=== PATIENT | female | born 1960 | race African-American/Black ===

== ENCOUNTER 2017-11-30 11:47 | Emergency (ER) | payer OTHER ==
[2017-11-30 11:56] VITALS: TEMP 98.2
[2017-11-30] MEDS ORDERED: IPRATROPIUM-ALBUTEROL 3 ML NEB INHALATION STA (12:03)
--- NOTE | 2017-11-30 12:06 | ED ---
General Adult HPI - General Chief complaint: Shortness of Breath Stated complaint: COUGH Time Seen by Provider: 11/30/17 12:00 Source: patient, RN notes reviewed Mode of arrival: ambulatory Limitations: no limitations - History of Present Illness Initial comments: Patient is a pleasant 57-year-old female presenting to the emergency Department with complaints of cough and difficulty breathing. Onset of symptoms was around 9 days ago. Patient does have productive cough however states it is difficult to get phlegm up. Patient states there is some yellow tinged phlegm. No fevers. Patient does have some discomfort with cough only left lateral ribs. No leg pain or leg swelling. No fevers. No history of previous lung disease. Patient is a daily smoker. - Related Data Home Medications Medication Instructions Recorded Confirmed D-Methorphan/PE/Acetaminophen 2 tab PO Q4H PRN 11/30/17 11/30/17 [Tylenol Cold Multi-Symp Caplet] Previous Rx's Medication Instructions Recorded Albuterol Inhaler [Ventolin Hfa 2 puff INHALATION Q4HR PRN #1 11/30/17 Inhaler] inhaler Azithromycin [Zithromax Z-pack] 250 mg PO DIRECTED #6 tab 11/30/17 predniSONE 20 mg PO BID #8 tab 11/30/17 Allergies Allergy/AdvReac Type Severity Reaction Status Date / Time No Known Allergies Allergy Verified 11/30/17 12:23 Review of Systems ROS Statement: Those systems with pertinent positive or pertinent negative responses have been documented in the HPI. ROS Other: All systems not noted in ROS Statement are negative. Constitutional: Denies: fever Eyes: Denies: eye pain ENT: Denies: ear pain Respiratory: Reports: cough, dyspnea Cardiovascular: Denies: chest pain, palpitations, edema Endocrine: Denies: fatigue Gastrointestinal: Denies: abdominal pain Genitourinary: Denies: dysuria Musculoskeletal: Denies: back pain Skin: Denies: rash Neurological: Denies: weakness Past Medical History Past Medical History: No Reported History History of Any Multi-Drug Resistant Organisms: None Reported Past Surgical History: Tubal Ligation Past Psychological History: No Psychological Hx Reported Smoking Status: Current every day smoker Past Alcohol Use History: Occasional Past Drug Use History: Marijuana General Exam Limitations: no limitations General appearance: alert, in no apparent distress Head exam: Present: atraumatic Eye exam: Present: normal appearance ENT exam: Present: normal oropharynx Neck exam: Present: normal inspection Respiratory exam: Present: normal lung sounds bilaterally. Absent: chest wall tenderness Cardiovascular Exam: Present: regular rate, normal rhythm GI/Abdominal exam: Present: soft. Absent: tenderness Extremities exam: Present: normal inspection. Absent: pedal edema, calf tenderness Neurological exam: Present: alert Psychiatric exam: Present: normal affect, normal mood Skin exam: Present: normal color Course Vital Signs 11/30/17 11/30/17 11/30/17 11:53 12:20 12:29 Temperature 98.2 F Pulse Rate 106 H 87 81 Respiratory 20 Rate Blood Pressure 135/83 O2 Sat by Pulse 97 Oximetry 11/30/17 12:50 Temperature Pulse Rate 77 Respiratory 18 Rate Blood Pressure 122/74 O2 Sat by Pulse Oximetry EKG Findings - EKG Comments: EKG Findings:: Normal sinus rhythm 98. IL 150. QRS 78. QT 378. QTC 42. Normal axis. Septal Q waves. No acute ST change. Biatrial enlargement. Medical Decision Making - Medical Decision Making Patient reevaluated and resting comfortably in bed. Patient feels much better and requests discharge. Lungs are clear to auscultation. Patient updated on results and need for follow-up. Patient also advised to discontinue smoking. - Lab Data Result diagrams: 11/30/17 12:16 11/30/17 12:16 Lab Results 11/30/17 11/30/17 11/30/17 Range/Units 12:16 12:16 12:16 WBC 6.5 (3.8-10.6) k/uL RBC 4.58 (3.80-5.40) m/uL Hgb 14.0 (11.4-16.0) gm/dL Hct 44.8 (34.0-46.0) % MCV 97.9 (80.0-100.0) fL MCH 30.7 (25.0-35.0) pg MCHC 31.3 (31.0-37.0) g/dL RDW 14.4 (11.5-15.5) % Plt Count 300 (150-450) k/uL Neutrophils % 40 % Lymphocytes % 49 % Monocytes % 6 % Eosinophils % 2 % Basophils % 1 % Neutrophils # 2.6 (1.3-7.7) k/uL Lymphocytes # 3.1 (1.0-4.8) k/uL Monocytes # 0.4 (0-1.0) k/uL Eosinophils # 0.1 (0-0.7) k/uL Basophils # 0.1 (0-0.2) k/uL PT (9.0-12.0) sec INR (<1.2) APTT (22.0-30.0) sec D-Dimer (<0.60) mg/L FEU Sodium 140 (137-145) mmol/L Potassium 4.2 (3.5-5.1) mmol/L Chloride 106 (98-107) mmol/L Carbon Dioxide 26 (22-30) mmol/L Anion Gap 8 mmol/L BUN 16 (7-17) mg/dL Creatinine 0.82 (0.52-1.04) mg/dL Est GFR (CKD-EPI)AfAm >90 (>60 ml/min/1.73 sqM) Est GFR (CKD-EPI)NonAf 81 (>60 ml/min/1.73 sqM) Glucose 105 H (74-99) mg/dL Calcium 9.9 (8.4-10.2) mg/dL Total Bilirubin 0.6 (0.2-1.3) mg/dL AST 25 (14-36) U/L ALT 17 (9-52) U/L Alkaline Phosphatase 78 (38-126) U/L Total Creatine Kinase 116 (30-135) U/L CK-MB (CK-2) 0.9 (0.0-2.4) ng/mL CK-MB (CK-2) Rel Index 0.8 Troponin I <0.012 (0.000-0.034) ng/mL NT-Pro-B Natriuret Pep pg/mL Total Protein 7.7 (6.3-8.2) g/dL Albumin 4.3 (3.5-5.0) g/dL 11/30/17 11/30/17 Range/Units 12:16 12:16 WBC (3.8-10.6) k/uL RBC (3.80-5.40) m/uL Hgb (11.4-16.0) gm/dL Hct (34.0-46.0) % MCV (80.0-100.0) fL MCH (25.0-35.0) pg MCHC (31.0-37.0) g/dL RDW (11.5-15.5) % Plt Count (150-450) k/uL Neutrophils % % Lymphocytes % % Monocytes % % Eosinophils % % Basophils % % Neutrophils # (1.3-7.7) k/uL Lymphocytes # (1.0-4.8) k/uL Monocytes # (0-1.0) k/uL Eosinophils # (0-0.7) k/uL Basophils # (0-0.2) k/uL PT 9.9 (9.0-12.0) sec INR 1.0 (<1.2) APTT 22.8 (22.0-30.0) sec D-Dimer 0.35 (<0.60) mg/L FEU Sodium (137-145) mmol/L Potassium (3.5-5.1) mmol/L Chloride (98-107) mmol/L Carbon Dioxide (22-30) mmol/L Anion Gap mmol/L BUN (7-17) mg/dL Creatinine (0.52-1.04) mg/dL Est GFR (CKD-EPI)AfAm (>60 ml/min/1.73 sqM) Est GFR (CKD-EPI)NonAf (>60 ml/min/1.73 sqM) Glucose (74-99) mg/dL Calcium (8.4-10.2) mg/dL Total Bilirubin (0.2-1.3) mg/dL AST (14-36) U/L ALT (9-52) U/L Alkaline Phosphatase (38-126) U/L Total Creatine Kinase (30-135) U/L CK-MB (CK-2) (0.0-2.4) ng/mL CK-MB (CK-2) Rel Index Troponin I (0.000-0.034) ng/mL NT-Pro-B Natriuret Pep 45 pg/mL Total Protein (6.3-8.2) g/dL Albumin (3.5-5.0) g/dL - Radiology Data Radiology results: image reviewed (Chest x-ray shows no acute process) Disposition Clinical Impression: Acute bronchitis Disposition: HOME SELF-CARE Condition: Stable Instructions: Acute Bronchitis (ED) Additional Instructions: Discontinue smoking. These follow-up with primary care physician in the next couple days for recheck. Return for difficulty breathing, fevers, chest pain, worsening or changing symptoms or other concerns. Prescriptions: Albuterol Inhaler [Ventolin Hfa Inhaler] 2 puff INHALATION Q4HR PRN #1 inhaler PRN Reason: Dyspnea Azithromycin [Zithromax Z-pack] 250 mg PO DIRECTED #6 tab predniSONE 20 mg PO BID #8 tab Is patient prescribed a controlled substance at d/c from ED?: No Referrals: Filemon Wu MD [Primary Care Provider] - 1-2 days Time of Disposition: 13:35
[2017-11-30 12:35] LABS: Basophils # (A) 0.1 k/uL (0-0.2); Basophils % (A) 1 %; Eosinophils # (A) 0.1 k/uL (0-0.7); Eosinophils % (A) 2 %; HCT 44.8 % (34.0-46.0); Lymphocytes # (A) 3.1 k/uL (1.0-4.8); Lymphocytes % (A) 49 %; MCH 30.7 pg (25.0-35.0); MCHC 31.3 g/dL (31.0-37.0); MCV 97.9 fL (80.0-100.0); Mean Platelet Volume 6.4; Monocytes # (A) 0.4 k/uL (0-1.0); Monocytes % (A) 6 %; Neutrophils # (A) 2.6 k/uL (1.3-7.7); Neutrophils % (A) 40 %; Platelet Count 300 k/uL (150-450); RBC 4.58 m/uL (3.80-5.40); RDW 14.4 % (11.5-15.5); WBC 6.5 k/uL (3.8-10.6)
[2017-11-30 12:49] LABS: ALT 17 U/L (9-52); AST 25 U/L (14-36); Albumin 4.3 g/dL (3.5-5.0); Alkaline Phosphatase 78 U/L (38-126); Anion Gap 8 mmol/L; Blood Urea Nitrogen 16 mg/dL (7-17); Calcium 9.9 mg/dL (8.4-10.2); Carbon Dioxide 26 mmol/L (22-30); Chloride 106 mmol/L (98-107); Glucose 105 mg/dL (74-99); Potassium 4.2 mmol/L (3.5-5.1); Sodium 140 mmol/L (137-145); Total Bilirubin 0.6 mg/dL (0.2-1.3); Total Protein 7.7 g/dL (6.3-8.2)
--- NOTE | 2017-11-30 12:49 | XR ---
EXAMINATION TYPE: XR chest 2V DATE OF EXAM: 11/30/2017 COMPARISON: NONE HISTORY: Shortness of breath TECHNIQUE: Frontal and lateral views of the chest are obtained. FINDINGS: Scattered senescent parenchymal changes noted. Hyperinflation compatible with COPD. No evidence for infiltrate. No evidence for atelectasis. Heart size is stable. Mediastinal structures are stable and grossly unremarkable. No evidence for hilar prominence. Degenerative changes dorsal spine. IMPRESSION: 1. No evidence for acute pulmonary disease.
[2017-11-30 12:52] LABS: D-Dimer 0.35 mg/L FEU (<0.60); Partial Thromboplastin Time 22.8 sec (22.0-30.0); Prothrombin Time 9.9 sec (9.0-12.0)
[2017-11-30 12:53] VITALS: RESP 18
[2017-11-30 13:01] LABS: Creatine Kinase 116 U/L (30-135)
[2017-11-30 13:14] LABS: Creatine Kinase MB 0.9 ng/mL (0.0-2.4); Troponin I <0.012 ng/mL (0.000-0.034)
[2017-11-30 14:06] VITALS: BP 99/64; PULSE 80
== END 2017-11-30 14:04 | disposition home or self-care (01) ==
LOC: EC 11:47
DX: J20.9 Acute bronchitis, unspecified (principal); F17.200 Nicotine dependence, unspecified, uncomplicated
CPT/HCPCS: 36415; 71046; 80053; 82550; 82553; 83880; 84484; 85025; 85379; 85610; 85730; 93005; 94640; 99285

== ENCOUNTER 2020-12-26 04:10 | Inpatient (IN) | payer OTHER ==
[2020-12-26] MEDS ORDERED: AZITHROMYCIN 500 MG in SODIUM CHLORIDE 0.9% 250 ML IVPB STA (04:30)
[2020-12-26] MEDS ORDERED: DEXAMETHASONE SOD PHOSPHATE 10 MG/ML 1 ML VIAL IVP STA (04:30)
[2020-12-26] MEDS ORDERED: SODIUM CHLORIDE 0.9% 1,000 ML IV STA (04:30)
[2020-12-26] MEDS ORDERED: ALBUTEROL HFA INHALER INHALATION STA (04:30)
[2020-12-26] MEDS ORDERED: KETOROLAC 15 MG/ML 1 ML VIAL IVP STA (04:30)
[2020-12-26] MEDS ORDERED: ACETAMINOPHEN TAB 500 MG TAB PO STA (04:30)
--- NOTE | 2020-12-26 04:32 | ED ---
SOB HPI - General Chief Complaint: Upper Respiratory Infection Stated Complaint: Pneumonia Time Seen by Provider: 12/26/20 04:14 Source: patient, RN notes reviewed, old records reviewed Mode of arrival: wheelchair Limitations: no limitations - History of Present Illness Initial Comments: This is a 52-year-old female to the emergency. Patient was [facility] diagnosed with pneumonia. Patient states she was diagnosed at [facility] states her symptoms have been getting progressively worse. Persistent fever persistent shortness of breath increased cough and congestion. Patient is apparent history of legionnaire's disease but otherwise clean medical history and no other complaints. Sick contacts include that hospitalization MD Complaint: shortness of breath, cough -: days(s) Severity: moderate Severity scale (1-10): 7 Quality: aching Consistency: constant Improves With: nothing Worsens With: nothing Known History Of: COPD, asthma Context: recent URI, recent illness Associated Symptoms: cough, sputum production Treatments Prior to Arrival: none - Related Data Home Medications Medication Instructions Recorded Confirmed D-Methorphan/PE/Acetaminophen 2 tab PO Q4H PRN 11/30/17 11/30/17 [Tylenol Cold Multi-Symp Caplet] Previous Rx's Medication Instructions Recorded Albuterol Inhaler (Mhu) [Ventolin 2 puff INHALATION Q4HR PRN #1 11/30/17 Hfa Inhaler (Mhu)] inhaler Azithromycin [Zithromax Z-pack (6 250 mg PO DIRECTED #6 tab 11/30/17 tabs)] predniSONE [Deltasone] 20 mg PO BID #8 tab 11/30/17 Allergies Allergy/AdvReac Type Severity Reaction Status Date / Time No Known Allergies Allergy Verified 12/26/20 04:21 Review of Systems ROS Statement: Those systems with pertinent positive or pertinent negative responses have been documented in the HPI. ROS Other: All systems not noted in ROS Statement are negative. Past Medical History Past Medical History: No Reported History Additional Past Medical History / Comment(s): Legionnaires Disease History of Any Multi-Drug Resistant Organisms: None Reported Past Surgical History: Tubal Ligation Past Psychological History: No Psychological Hx Reported Smoking Status: Former smoker Past Alcohol Use History: Occasional Past Drug Use History: Marijuana General Exam Limitations: no limitations General appearance: alert, in no apparent distress, anxious Head exam: Present: atraumatic, normocephalic, normal inspection Eye exam: Present: normal appearance, PERRL, EOMI. Absent: scleral icterus, conjunctival injection, periorbital swelling ENT exam: Present: normal exam, mucous membranes moist Neck exam: Present: normal inspection. Absent: tenderness, meningismus, lymphadenopathy Respiratory exam: Present: respiratory distress, wheezes. Absent: rales, rhonchi, stridor Cardiovascular Exam: Present: normal rhythm, tachycardia, normal heart sounds. Absent: systolic murmur, diastolic murmur, rubs, gallop, clicks GI/Abdominal exam: Present: soft, normal bowel sounds. Absent: distended, tenderness, guarding, rebound, rigid Extremities exam: Present: normal inspection, full ROM, normal capillary refill. Absent: tenderness, pedal edema, joint swelling, calf tenderness Back exam: Present: normal inspection Neurological exam: Present: alert, oriented X3, CN II-XII intact Psychiatric exam: Present: normal affect, normal mood Skin exam: Present: warm, dry, intact, normal color. Absent: rash Course Vital Signs 12/26/20 04:17 Temperature 100.4 F H Pulse Rate 138 H Respiratory 20 Rate Blood Pressure 107/66 O2 Sat by Pulse 88 L Oximetry - Reevaluation(s) Reevaluation #1: 12/26/20 04:32 Medical record is reviewed Reevaluation #2: 12/26/20 05:49 She is improved with supplemental oxygen and supportive care fever control Reevaluation #3: 12/26/20 05:49 Patient is informed of results and questions are answered - Consultations Consultation #1: Spoke with sound who agrees to admit this patient Medical Decision Making - Medical Decision Making 52 female to the emergency room. Patient has persistent fever shortness of breath with right low pneumonia. We will again retest patient for coronavirus treat for pneumonia patient be admitted for supportive care and supportive O2 therapy - Lab Data Result diagrams: 12/26/20 04:35 12/26/20 04:35 Lab Results 12/26/20 12/26/20 12/26/20 Range/Units 04:35 04:35 04:35 WBC 13.2 H (3.8-10.6) k/uL RBC 4.40 (3.80-5.40) m/uL Hgb 14.6 (11.4-16.0) gm/dL Hct 42.4 (34.0-46.0) % MCV 96.3 (80.0-100.0) fL MCH 33.1 (25.0-35.0) pg MCHC 34.3 (31.0-37.0) g/dL RDW 14.4 (11.5-15.5) % Plt Count 268 (150-450) k/uL MPV 7.9 Neutrophils % 83 % Lymphocytes % 10 % Monocytes % 5 % Eosinophils % 1 % Basophils % 0 % Neutrophils # 10.9 H (1.3-7.7) k/uL Lymphocytes # 1.3 (1.0-4.8) k/uL Monocytes # 0.6 (0-1.0) k/uL Eosinophils # 0.1 (0-0.7) k/uL Basophils # 0.1 (0-0.2) k/uL PT 11.4 (9.0-12.0) sec INR 1.1 (<1.2) APTT 27.9 (22.0-30.0) sec Sodium 132 L (137-145) mmol/L Potassium 3.6 (3.5-5.1) mmol/L Chloride 99 (98-107) mmol/L Carbon Dioxide 21 L (22-30) mmol/L Anion Gap 12 mmol/L BUN 9 (7-17) mg/dL Creatinine 0.71 (0.52-1.04) mg/dL Est GFR (CKD-EPI)AfAm >90 (>60 ml/min/1.73 sqM) Est GFR (CKD-EPI)NonAf >90 (>60 ml/min/1.73 sqM) Glucose 101 H (74-99) mg/dL Plasma Lactic Acid Phillip (0.7-2.0) mmol/L Calcium 9.1 (8.4-10.2) mg/dL Magnesium 1.8 (1.6-2.3) mg/dL Total Bilirubin 1.6 H (0.2-1.3) mg/dL AST 73 H (14-36) U/L ALT 70 H (4-34) U/L Alkaline Phosphatase 205 H (38-126) U/L Lactate Dehydrogenase 617 (313-618) U/L Total Protein 7.0 (6.3-8.2) g/dL Albumin 3.8 (3.5-5.0) g/dL 12/26/20 Range/Units 04:35 WBC (3.8-10.6) k/uL RBC (3.80-5.40) m/uL Hgb (11.4-16.0) gm/dL Hct (34.0-46.0) % MCV (80.0-100.0) fL MCH (25.0-35.0) pg MCHC (31.0-37.0) g/dL RDW (11.5-15.5) % Plt Count (150-450) k/uL MPV Neutrophils % % Lymphocytes % % Monocytes % % Eosinophils % % Basophils % % Neutrophils # (1.3-7.7) k/uL Lymphocytes # (1.0-4.8) k/uL Monocytes # (0-1.0) k/uL Eosinophils # (0-0.7) k/uL Basophils # (0-0.2) k/uL PT (9.0-12.0) sec INR (<1.2) APTT (22.0-30.0) sec Sodium (137-145) mmol/L Potassium (3.5-5.1) mmol/L Chloride (98-107) mmol/L Carbon Dioxide (22-30) mmol/L Anion Gap mmol/L BUN (7-17) mg/dL Creatinine (0.52-1.04) mg/dL Est GFR (CKD-EPI)AfAm (>60 ml/min/1.73 sqM) Est GFR (CKD-EPI)NonAf (>60 ml/min/1.73 sqM) Glucose (74-99) mg/dL Plasma Lactic Acid Phillip 0.9 (0.7-2.0) mmol/L Calcium (8.4-10.2) mg/dL Magnesium (1.6-2.3) mg/dL Total Bilirubin (0.2-1.3) mg/dL AST (14-36) U/L ALT (4-34) U/L Alkaline Phosphatase (38-126) U/L Lactate Dehydrogenase (313-618) U/L Total Protein (6.3-8.2) g/dL Albumin (3.5-5.0) g/dL - EKG Data -: EKG Interpreted by Me (EKG shows sinus tachycardia 122 PA 144 QRS 80 QTc 456) - Radiology Data Radiology results: report reviewed (CTA chest does show significant right-sided pneumonia), image reviewed Critical Care Time Critical Care Time: Yes Total Critical Care Time: 31 Disposition Clinical Impression: Hypoxia, Pneumonia, Fever, Pneumonia involving right lung Disposition: ADMITTED IP TO THIS HOSP Condition: Serious Is patient prescribed a controlled substance at d/c from ED?: No Referrals: None,Stated [Primary Care Provider] - 1-2 days
[2020-12-26 05:21] LABS: Basophils # (A) 0.1 k/uL (0-0.2); Basophils % (A) 0 %; Eosinophils # (A) 0.1 k/uL (0-0.7); Eosinophils % (A) 1 %; HCT 42.4 % (34.0-46.0); HGB 14.6 gm/dL (11.4-16.0); Lymphocytes # (A) 1.3 k/uL (1.0-4.8); Lymphocytes % (A) 10 %; MCH 33.1 pg (25.0-35.0); MCHC 34.3 g/dL (31.0-37.0); MCV 96.3 fL (80.0-100.0); Mean Platelet Volume 7.9; Monocytes # (A) 0.6 k/uL (0-1.0); Monocytes % (A) 5 %; Neutrophils # (A) 10.9 k/uL (1.3-7.7); Neutrophils % (A) 83 %; Platelet Count 268 k/uL (150-450); RDW 14.4 % (11.5-15.5); WBC 13.2 k/uL (3.8-10.6)
--- NOTE | 2020-12-26 05:29 | CT ---
EXAMINATION TYPE: CT angio chest DATE OF EXAM: 12/26/2020 COMPARISON: None HISTORY: pneumonia, coughing up blood CT DLP: 213.2 mGycm Automated exposure control for dose reduction was used. CONTRAST: Performed with IV Contrast, patient injected with 60 mL of Isovue 370. There are 3-D post processed images. There is airspace consolidation in the right lower lobe and right middle lobe. Heart size is normal. There is no pericardial effusion. There is normal contrast opacification of the pulmonary arteries. There are no filling defects. There are a few bronchial lymph nodes up to 1.5 cm. There is no mediastinal adenopathy. Thoracic aorta is intact. There is no aneurysm or dissection. There is no evidence of filling defect in the pulmonary arteries. Thoracic spine is intact. There is no compression fracture. Sternum is intact. Upper abdominal soft t issues are intact. IMPRESSION: Right lower lobe and right middle lobe pneumonia. Mild right bronchial adenopathy. No evidence of pulmonary embolism.
[2020-12-26 05:31] LABS: INR 1.1 (<1.2); Partial Thromboplastin Time 27.9 sec (22.0-30.0); Prothrombin Time 11.4 sec (9.0-12.0)
[2020-12-26 05:37] LABS: ALT 70 U/L (4-34); AST 73 U/L (14-36); African American GFR (CKD) >90 (>60 ml/min/1.73 sqM); Albumin 3.8 g/dL (3.5-5.0); Alkaline Phosphatase 205 U/L (38-126); Anion Gap 12 mmol/L; Blood Urea Nitrogen 9 mg/dL (7-17); Calcium 9.1 mg/dL (8.4-10.2); Carbon Dioxide 21 mmol/L (22-30); Chloride 99 mmol/L (98-107); Glucose 101 mg/dL (74-99); LDH 617 U/L (313-618); Magnesium 1.8 mg/dL (1.6-2.3); Non-African American GFR(CKD) >90 (>60 ml/min/1.73 sqM); Potassium 3.6 mmol/L (3.5-5.1); Sodium 132 mmol/L (137-145); Total Bilirubin 1.6 mg/dL (0.2-1.3)
[2020-12-26] MEDS ORDERED: IBUPROFEN 400 MG TAB PO PRN (05:41)
[2020-12-26] MEDS ORDERED: MORPHINE SULFATE 4 MG/ML SYRINGE IV PRN (05:41)
[2020-12-26] MEDS ORDERED: ONDANSETRON 4 MG/2 ML VIAL IVP PRN (05:41)
[2020-12-26] MEDS ORDERED: NALOXONE 0.4 MG/ML 1 ML VIAL IV PRN (05:41)
[2020-12-26 06:09] LABS: C Reactive Protein 37.4 mg/dL (<1.0)
[2020-12-26] MEDS: SODIUM CHLORIDE 0.9% 1,000 ML IV SCH ×3 (06:29→23:07)
[2020-12-26] MEDS: ENOXAPARIN 40 MG/0.4 ML SYRINGE SQ SCH (07:32)
--- NOTE | 2020-12-26 08:43 | US ---
EXAMINATION TYPE: US gallbladder DATE OF EXAM: 12/26/2020 COMPARISON: NONE CLINICAL HISTORY: pain. EXAM MEASUREMENTS: Liver Length: 15.5 cm Gallbladder Wall: 0.3 cm CBD: 0.3 cm Right Kidney: 9.9 x 3.9 x 5.0 cm Pancreas: wnl Liver: wnl Gallbladder: wnl Evidence for sonographic Villalba's sign: no CBD: wnl Right Kidney: No hydronephrosis or masses seen IMPRESSION: No significant abnormality appreciated.
[2020-12-26] MEDS: ALBUTEROL HFA INHALER INHALATION SCH ×3 (09:12→19:59)
--- NOTE | 2020-12-26 09:15 | P.HPIM ---
History of Present Illness H&P Date: 12/26/20 This is a 60-year-old female with no significant past medical history that presented to the emergency room with worsening cough and hemoptysis. Patient told me that her symptoms started last week with progressive shortness of breath and cough and at that time she went to take her [facility] emergency room on 12/21 and was diagnosed with pneumonia. Patient was given a prescription for azithromycin which she took as prescribed. Patient said that her symptoms did not improve and she was having a lot of cough associated with right flank pain. This morning, she coughed up blood that she described as bright red and a small amount. She told me that the blood came up immediately with the first cough and not after prolonged coughing episode. Patient otherwise denies any fevers or chills. She was checked for COVID-19 at the outside hospital and here in our emergency room and both were negative. She also underwent a CT angiogram of the chest here in the ER that I reviewed. She'll be admitted to the hospital for further management. Patient is a former smoker and quit 2 months ago. She denies any marijuana or other substance use. Review of Systems General: The patient is awake and alert, in no distress Eye: there is normal conjunctiva bilaterally. Neck: The neck is supple, there is no JVD. Cardiovascular: Normal S1-S2, no S3-S4, no murmurs. Respiratory: Lungs clear to auscultation bilaterally Gastrointestinal: Abdomen is soft, nontender Musculoskeletal: There is no pedal edema. Neurological:. Speech is normal. Skin: Skin is warm and dry Past Medical History Past Medical History: No Reported History Additional Past Medical History / Comment(s): Legionnaires Disease History of Any Multi-Drug Resistant Organisms: None Reported Past Surgical History: Tubal Ligation Past Psychological History: No Psychological Hx Reported Smoking Status: Former smoker Past Alcohol Use History: Occasional Past Drug Use History: Marijuana Medications and Allergies Home Medications Medication Instructions Recorded Confirmed Type Pseudoephedrine HCl [Sudogest] 60 mg PO Q6H PRN 12/26/20 12/26/20 History Allergies Allergy/AdvReac Type Severity Reaction Status Date / Time No Known Allergies Allergy Verified 12/26/20 08:09 Physical Exam Vitals: Vital Signs Temp Pulse Resp BP Pulse Ox 12/26/20 07:34 98 20 92/62 97 12/26/20 06:25 110 H 18 108/76 98 12/26/20 04:17 100.4 F H 138 H 20 107/66 88 L Intake and Output 12/25/20 12/26/20 12/26/20 22:59 06:59 14:59 Other: Weight 66.678 kg General: The patient is awake and alert, in no distress Eye: there is normal conjunctiva bilaterally. Neck: The neck is supple, there is no JVD. Cardiovascular: Normal S1-S2, no S3-S4, no murmurs. Respiratory: Lungs clear to auscultation bilaterally with mild end expiratory wheezing Gastrointestinal: Abdomen is soft, nontender Musculoskeletal: There is no pedal edema. Neurological:. Speech is normal. Skin: Skin is warm and dry Results CBC & Chem 7: 12/26/20 04:35 12/26/20 04:35 Labs: Abnormal Lab Results - Last 24 Hours (Table) 12/26/20 12/26/20 Range/Units 04:35 04:35 WBC 13.2 H (3.8-10.6) k/uL Neutrophils # 10.9 H (1.3-7.7) k/uL Sodium 132 L (137-145) mmol/L Carbon Dioxide 21 L (22-30) mmol/L Glucose 101 H (74-99) mg/dL Total Bilirubin 1.6 H (0.2-1.3) mg/dL AST 73 H (14-36) U/L ALT 70 H (4-34) U/L Alkaline Phosphatase 205 H (38-126) U/L C-Reactive Protein 37.4 H (<1.0) mg/dL Assessment and Plan Assessment: This is a 60-year-old female with no significant past medical history that presented to the emergency room with worsening cough and shortness of breath. Patient will be admitted to the hospital for further management of her medical problems noted below. 1. Right lung pneumonia failed outpatient treatment 2. Sepsis without septic shock 3. Reactive airway disease with mild wheezing 4. Hemoptysis, probably secondary to above. 5. Former smoker, quit 2 months ago 6. DVT prophylaxis with subcu Lovenox Today, I reviewed her medication list and lab work results. CT angiogram of the chest showed no evidence of PE and evidence of right lower lobe and right middle lobe pneumonia. Pro-calcitonin pending. I would check for RSV and influenza. COVID-19 screen negative twice. We'll continue antibiotic with IV ceftriaxone and oral azithromycin. Sputum culture ordered. Albuterol inhaler as needed. Continue aggressive IV fluid hydration. Repeat lab work in the morning. I will consult pulmonary for further evaluation.
--- NOTE | 2020-12-26 12:13 | P.CNPUL ---
History of Present Illness Consult date: 12/26/20 Reason for consult: pneumonia History of present illness: 60-year-old female patient, -[place]namese, with a previous history of legionnaires disease that was treated at [facility], coming in today for a right lung pneumonia. The patient started having symptoms of URI and following that she started expressing pain a cluster right lateral chest area, pleuritic in nature, worse with breathing and cough and. For that reason she came in and the chest x-ray showed pneumonia and the CAT scan of the chest showed an extensive right middle lobe pneumonia and some in the right lower lobe. Based on that, the patient was started and accommodation antibiotics with Rocephin and Zithromax and she was hospitalized. COVID-19 testing is been negative. She has not taken her COVID-19 vaccination for now. She is a former smoker. She quit smoking about 2 months ago. Prior to that she used to smoke about half pack of cigarettes a day. She denies using any marijuana. No history of substance abuse, no alcoholism, no altered mentation, no hemoptysis, no history of malignancy, her vitals are all stable and the patient has no tachycardia or tachypnea. She is awake and alert and there is no altered mentation. Review of Systems Constitutional: Reports chills, Reports fatigue, Reports fever Eyes: denies as per HPI, denies blurred vision, denies bulging eye, denies decreased vision, denies diplopia, denies discharge, denies dry eye, denies irritation, denies itching, denies pain, denies photophobia, denies loss of peripheral vision, denies loss of vision, denies tunnel vision/blind spots Ears: deny: decreased hearing, ear discharge, earache, tinnitus Ears, nose, mouth and throat: Reports as per HPI Breasts: absent: as per HPI, change in shape, gynecomastia, masses, nipple discharge, pain, skin changes, swelling Cardiovascular: Reports as per HPI, Reports chest pain, Reports dyspnea on exertion Respiratory: Reports as per HPI, Reports cough, Reports dyspnea, Reports wheezing Gastrointestinal: Reports as per HPI Genitourinary: Reports as per HPI Menstruation: Reports as per HPI Musculoskeletal: Reports as per HPI Musculoskeletal: absent: ankle pain, ankle stiffness, ankle swelling, as per HPI, elbow pain, elbow stiffness, elbow swelling, foot pain, foot stiffness, foot swelling, hand pain, hand stiffness, hand swelling, hip pain, hip stiffness, hip swelling, knee pain, knee stiffness, knee swelling, shoulder pain, shoulder stiffness, shoulder swelling, wrist pain, wrist stiffness, wrist swelling Integumentary: Reports as per HPI Neurological: Reports as per HPI Psychiatric: Reports as per HPI Endocrine: Reports as per HPI Hematologic/Lymphatic: Reports as per HPI Allergic/Immunologic: Reports as per HPI Past Medical History Past Medical History: No Reported History Additional Past Medical History / Comment(s): Legionnaires Disease History of Any Multi-Drug Resistant Organisms: None Reported Past Surgical History: Tubal Ligation Past Psychological History: No Psychological Hx Reported Smoking Status: Former smoker Past Alcohol Use History: Occasional Past Drug Use History: Marijuana Medications and Allergies Home Medications Medication Instructions Recorded Confirmed Type Pseudoephedrine HCl [Sudogest] 60 mg PO Q6H PRN 12/26/20 12/26/20 History Allergies Allergy/AdvReac Type Severity Reaction Status Date / Time No Known Allergies Allergy Verified 12/26/20 08:09 Physical Exam Vitals: Vital Signs Temp Pulse Resp BP Pulse Ox 12/26/20 07:34 98 20 92/62 97 12/26/20 06:25 110 H 18 108/76 98 12/26/20 04:17 100.4 F H 138 H 20 107/66 88 L Intake and Output 12/25/20 12/26/20 12/26/20 22:59 06:59 14:59 Other: Weight 66.678 kg Gen. appearance, comfortable not in acute respiratory distress Head exam was generally normal. There was no scleral icterus or corneal arcus. Mucous membranes were moist. Neck was supple and without jugular venous distension, thyromegaly, or carotid bruits. Carotids were easily palpable bilaterally. There was no adenopathy. Lungs sounds are showing crackles along the anterior aspect of the right chest extending posteriorly to the right lower lobe. Scattered rhonchi. Scattered e xtremity wheezes. Cardiac exam revealed the PMI to be normally situated and sized. The rhythm was regular and no extrasystoles were noted during several minutes of auscultation. The first and second heart sounds were normal and physiologic splitting of the second heart sound was noted. There were no murmurs, rubs, clicks, or gallops. Abdomen abdomen Abdominal exam revealed normal bowel sounds. The abdomen was soft, non-tender, and without masses, organomegaly, or appreciable enlargement of the abdominal aorta. Examination of the extremities revealed easily palpable radial, femoral and pedal pulses. There was no cyanosis, clubbing or edema. Examination of the skin revealed no evidence of significant rashes, suspicious appearing nevi or other concerning lesions. Neurologically, the patient is awake and alert and the patient does not have any focal neurological deficit. Cranial nerves are essentially intact. Results - Laboratory Findings CBC and BMP: 12/26/20 04:35 12/26/20 04:35 PT/INR, D-dimer PT 11.4 sec (9.0-12.0) 12/26/20 04:35 INR 1.1 (<1.2) 12/26/20 04:35 Abnormal lab findings: Abnormal Labs 12/26/20 12/26/20 12/26/20 04:35 04:35 04:35 WBC 13.2 H Neutrophils # 10.9 H Sodium 132 L Carbon Dioxide 21 L Glucose 101 H Total Bilirubin 1.6 H AST 73 H ALT 70 H Alkaline Phosphatase 205 H C-Reactive Protein 37.4 H Procalcitonin 1.16 H - Diagnostic Findings Chest x-ray: image reviewed CT scan - chest: image reviewed Assessment and Plan Plan: 1 acute bilobar pneumonia. The patient has extensive consolidation of the right middle lobe and some of the right lower lobe and the patient is presenting with pleuritic right-sided chest wall pain, likely hypoxic respiratory failure and respiratory distress 2 shortness of breath secondary to above 3 acute hypoxic respiratory failure secondary to above currently on today's about 2 by nasal cannula 4 previous history of Legionella pneumonia/legionnaires disease Plan Check a Legionella urine antigen Check sputum Gram stain and culture Check blood cultures Agree on Rocephin and Zithromax Titrate FiO2 to maintain saturation above 90% IV Solu Medrol 40 mg every 8 hours We'll continue to follow
[2020-12-26] MEDS: methylPREDNISolone SOD SUCCI 40 MG/ML 1 ML VIAL IV SCH (15:12)
[2020-12-26] MEDS: ACETAMINOPHEN TAB 325 MG TAB PO PRN (20:13)
[2020-12-27] MEDS: methylPREDNISolone SOD SUCCI 40 MG/ML 1 ML VIAL IV SCH ×3 (00:33→15:45)
[2020-12-27] MEDS: ACETAMINOPHEN TAB 325 MG TAB PO PRN ×2 (02:21→12:17)
[2020-12-27] MEDS: SODIUM CHLORIDE 0.9% 1,000 ML IV SCH (05:46)
[2020-12-27] MEDS: ALBUTEROL HFA INHALER INHALATION SCH ×4 (07:47→21:13)
[2020-12-27] MEDS: ENOXAPARIN 40 MG/0.4 ML SYRINGE SQ SCH (08:37)
[2020-12-27] MEDS: AZITHROMYCIN 250 MG TAB PO SCH (09:45)
[2020-12-27] MEDS ORDERED: BENZONATATE 100 MG CAP PO PRN (10:15)
--- NOTE | 2020-12-27 10:17 | P.PN ---
Subjective Patient reports feeling about the same if not worse compared to yesterday. She is having persistent cough. She is also having symptoms of pleurisy secondary to severe cough. Objective - Vital Signs Vital signs: Vital Signs Temp 96.7 F L 12/27/20 07:27 Pulse 68 12/27/20 07:27 Resp 20 12/27/20 07:27 BP 118/74 12/27/20 07:27 Pulse Ox 97 12/27/20 07:27 Intake & Output 12/26/20 12/27/20 12/27/20 18:59 06:59 18:59 Weight 66.678 kg Other: # Voids 2 - Exam General: The patient is awake and alert, in no distress Eye: there is normal conjunctiva bilaterally. Neck: The neck is supple, there is no JVD. Cardiovascular: Normal S1-S2, no S3-S4, no murmurs. Respiratory: Lungs clear to auscultation bilaterally Gastrointestinal: Abdomen is soft, nontender Musculoskeletal: There is no pedal edema. Neurological:. Speech is normal. Skin: Skin is warm and dry - Labs CBC & Chem 7: 12/26/20 04:35 12/26/20 04:35 Labs: Abnormal Lab Results - Last 24 Hours (Table) 12/26/20 Range/Units 04:35 Procalcitonin 1.16 H (0.02-0.09) ng/mL Microbiology - Last 24 Hours (Table) 12/26/20 04:35 Blood Culture - Preliminary Blood No Growth after 24 hours Assessment and Plan Assessment: This is a 60-year-old female with no significant past medical history that presented to the emergency room with worsening cough and shortness of breath. Patient will be admitted to the hospital for further management of her medical problems noted below. 1. Right lung pneumonia failed outpatient treatment 2. Sepsis without septic shock 3. Reactive airway disease with mild wheezing with acute hypoxic respiratory failure 4. Hemoptysis, probably secondary to above. 5. Former smoker, quit 2 months ago 6. DVT prophylaxis with subcu Lovenox Today, I reviewed her medication list and lab work results. CT angiogram of the chest showed no evidence of PE and evidence of right lower lobe and right middle lobe pneumonia. Pro-calcitonin only slightly elevated. RSV and influenza negative. COVID-19 screen negative twice. We'll continue antibiotic with IV ceftriaxone and oral azithromycin. Sputum culture ordered. Albuterol inhaler as needed. Appreciate pulmonary recommendations, patient was started on IV Solu-Medrol Continue supportive care and wean off O2 as tolerated for O2 sats greater than 90%
[2020-12-27 11:46] LABS: ALT 45 U/L (8-44); AST 30 U/L (13-35); African American GFR (CKD) 116.4 (60.0-200.0); Albumin 3.1 g/dL (3.8-4.9); Albumin/Globulin Ratio 1.24 (1.60-3.17); Alkaline Phosphatase 143 U/L (41-126); BUN/Creat Ratio 16.33 Ratio (12.00-20.00); Blood Urea Nitrogen 9.8 mg/dL (9.0-27.0); Calcium 8.2 mg/dL (8.7-10.3); Carbon Dioxide 21.4 mmol/L (21.6-31.8); Chloride 109 mmol/L (96-109); Globulin 2.5 g/dL (1.6-3.3); Glucose 155 mg/dL (70-110); Non-African American GFR(CKD) 100.5 (60.0-200.0); Potassium 3.8 mmol/L (3.5-5.5); Sodium 140 mmol/L (135-145); Total Bilirubin <0.20 mg/dL (0.30-1.20); Total Protein 5.6 g/dL (6.2-8.2)
[2020-12-27 11:54] LABS: Basophils # (A) 0.02 X 10*3/uL (0.00-0.10); Basophils % (A) 0.1 %; Eosinophils # (A) 0 X 10*3/uL (0.04-0.35); Eosinophils % (A) 0 %; HCT 36.2 % (37.2-46.3); HGB 11.8 g/dL (12.0-15.0); Lymphocytes # (A) 0.97 X 10*3/uL (0.90-5.00); Lymphocytes % (A) 6.6 %; MCH 32.8 pg (27.0-32.0); MCHC 32.6 g/dL (32.0-37.0); MCV 100.6 fL (80.0-97.0); Mean Platelet Volume 10.1 fL (9.5-12.2); Monocytes # (A) 0.52 X 10*3/uL (0.20-1.00); Monocytes % (A) 3.5 %; Neutrophils # (A) 13.08 X 10*3/uL (1.80-7.70); Neutrophils % (A) 89.4 %; Platelet Count 244 X 10*3/uL (140-440); WBC 14.65 X 10*3/uL (4.50-10.00)
[2020-12-27 14:13] VITALS: BMI 25.2
--- NOTE | 2020-12-27 15:23 | P.PN ---
Subjective Progress Note Date: 12/27/20 Principal diagnosis: Acute community acquired pneumonia 60-year-old female patient, -[place], with a previous history of legionnaires disease that was treated at [facility], coming in today for a right lung pneumonia. The patient started having symptoms of URI and following that she started expressing pain a cluster right lateral chest area, pleuritic in nature, worse with breathing and cough and. For that reason she came in and the chest x-ray showed pneumonia and the CAT scan of the chest showed an extensive right middle lobe pneumonia and some in the right lower lobe. Based on that, the patient was started and accommodation antibiotics with Rocephin and Zithromax and she was hospitalized. COVID-19 testing is been negative. She has not taken her COVID-19 vaccination for now. She is a former smoker. She quit smoking about 2 months ago. Prior to that she used to smoke about half pack of cigarettes a day. She denies using any marijuana. No history of substance abuse, no alcoholism, no altered mentation, no hemoptysis, no history of malignancy, her vitals are all stable and the patient has no tachycardia or tachypnea. She is awake and alert and there is no altered mentation. On 12/27/2020 patient seen in follow-up on medical surgical floor, she is resting comfortably in bed, she is awake and alert, appears to be in no acute distress, no complaints of chest discomfort, no hemoptysis, she is currently on 2 L of oxygen and the pulse ox of 97%, remains on antibiotics with azithromycin and Rocephin, and Solu-Medrol 40 mg every 8 hours. Her CTA chest showed airspace consolidation in the right lower lobe and right middle lobe, no e vidence of pulmonary embolism. Legionella urine antigen was negative, patient also tested negative for COVID-19, influenza A and B and RSV. Her pro- calcitonin level at admission was elevated at 1.16. White blood cell count on today's labs is relatively stable at 14.6, hemoglobin is 11.8, sodium is 140, potassium is 3.8, chloride is 109, CO2 is 21, BUN is 9, creatinine 0.6. Blood culture has shown no growth. No fever or chills overnight. Vital signs have been stable. Objective - Vital Signs Vital signs: Vital Signs Temp 97.7 F 12/27/20 13:55 Pulse 86 12/27/20 13:55 Resp 18 12/27/20 14:13 BP 135/75 12/27/20 13:55 Pulse Ox 97 12/27/20 13:55 Intake & Output 12/26/20 12/27/20 12/27/20 18:59 06:59 18:59 Weight 66.678 kg 66.678 kg Other: # Voids 2 - Exam GENERAL EXAM: Alert, very pleasant, 60-year-old -[place] female, thin built, reading currently, on 2 L of oxygen and pulse ox of 97% comfortable in no apparent distress. HEAD: Normocephalic/atraumatic. EYES: Normal reaction of pupils, equal size. Conjunctiva pink, sclera white. NOSE: Clear with pink turbinates. THROAT: No erythema or exudates. NECK: No masses, no JVD, no thyroid enlargement, no adenopathy. CHEST: No chest wall deformity. Symmetrical expansion. LUNGS: Equal air entry with crackles, inspiratory over right lower lobe CVS: Regular rate and rhythm, normal S1 and S2, no gallops, no murmurs, no rubs ABDOMEN: Soft, nontender. No hepatosplenomegaly, normal bowel sounds, no guarding or rigidity. EXTREMITIES: No clubbing, no edema, no cyanosis, 2+ pulses and upper and lower extremities. MUSCULOSKELETAL: Muscle strength and tone normal. SPINE: No scoliosis or deformity SKIN: No rashes CENTRAL NERVOUS SYSTEM: Alert and oriented -3. No focal deficits, tone is normal in all 4 extremities. PSYCHIATRIC: Alert and oriented -3. Appropriate affect. Intact judgment and insight. - Labs CBC & Chem 7: 12/27/20 06:28 12/27/20 06:28 Labs: Abnormal Lab Results - Last 24 Hours (Table) 12/27/20 12/27/20 Range/Units 06:28 06:28 WBC 14.65 H (4.50-10.00) X 10*3/uL RBC 3.60 L (4.10-5.20) X 10*6/uL Hgb 11.8 L (12.0-15.0) g/dL Hct 36.2 L (37.2-46.3) % MCV 100.6 H (80.0-97.0) fL MCH 32.8 H (27.0-32.0) pg RDW 15.0 H (11.5-14.5) % Immature Gran # 0.06 H (0.00-0.04) X 10*3/uL Neutrophils # 13.08 H (1.80-7.70) X 10*3/uL Eosinophils # 0 L (0.04-0.35) X 10*3/uL Carbon Dioxide 21.4 L (21.6-31.8) mmol/L Glucose 155 H (70-110) mg/dL Calcium 8.2 L (8.7-10.3) mg/dL Total Bilirubin <0.20 L (0.30-1.20) mg/dL ALT 45 H (8-44) U/L Alkaline Phosphatase 143 H (41-126) U/L Total Protein 5.6 L (6.2-8.2) g/dL Albumin 3.1 L (3.8-4.9) g/dL Albumin/Globulin Ratio 1.24 L (1.60-3.17) g/dL Microbiology - Last 24 Hours (Table) 12/26/20 04:35 Blood Culture - Preliminary Blood No Growth after 24 hours Assessment and Plan Plan: Assessment: #1. Acute bilobar pneumonia in the right middle lobe and right lower lobe. CTA chest showed extensive consolidation in the right middle lobe and some of the right lower lobe. Patient presented with pleuritic right-sided chest wall pain. COVID-19 PCR was negative, Legionella urine antigen was negative, RSV, and influenza and B were negative. Consider possibility of bronchoalveolar cell carcinoma if it fails to respond to antibiotics and patient will need biopsies to rule out possibility of cancer #2. Acute hypoxic respiratory failure related to the above #3. Previous history of Legionella pneumonia/legionnaires disease #4. Former smoker Plan: Continue current antibiotic coverage We'll try to send a sputum culture Vital signs are stable, no fever or chills We'll continue to follow the right middle and right lower lobe pneumonia to resolution If the pneumonia fails to improve on the chest x-ray and CAT scans with treatment will consider possibility of bronchoalveolar cell carcinoma and patient will need biopsies to rule out possibility of cancer Continue to follow her clinical course and make further recommendations I performed a history & physical examination of the patient and discussed their management with my nurse practitioner, Nhi Muniz. I reviewed the nurse practitioner's note and agree with the documented findings and plan of care. Lung sounds are positive for diffuse crackles in right lung throughout the lung fisher. The findings and the impression was discussed with the patient. I attest to the documentation by the nurse practitioner. Time with Patient: Less than 30
[2020-12-28] MEDS: methylPREDNISolone SOD SUCCI 40 MG/ML 1 ML VIAL IV SCH ×2 (00:54→08:30)
[2020-12-28] MEDS: ACETAMINOPHEN TAB 325 MG TAB PO PRN (05:31)
[2020-12-28 07:33] LABS: Basophils % (A) 0 %; Eosinophils # (A) 0.1 k/uL (0-0.7); Eosinophils % (A) 1 %; HCT 37.8 % (34.0-46.0); HGB 12.2 gm/dL (11.4-16.0); Lymphocytes # (A) 0.8 k/uL (1.0-4.8); Lymphocytes % (A) 6 %; MCH 32.8 pg (25.0-35.0); MCHC 32.3 g/dL (31.0-37.0); Macrocytosis Slight; Mean Platelet Volume 7.6; Monocytes # (A) 0.3 k/uL (0-1.0); Monocytes % (A) 2 %; Neutrophils # (A) 12.2 k/uL (1.3-7.7); Neutrophils % (A) 91 %; Platelet Count 290 k/uL (150-450); RBC 3.72 m/uL (3.80-5.40); RDW 14.5 % (11.5-15.5); WBC 13.5 k/uL (3.8-10.6)
[2020-12-28 07:34] LABS: MCV 101.8 fL (80.0-100.0)
[2020-12-28 07:39] LABS: ALT 44 U/L (4-34); AST 36 U/L (14-36); African American GFR (CKD) >90 (>60 ml/min/1.73 sqM); Albumin 2.9 g/dL (3.5-5.0); Alkaline Phosphatase 119 U/L (38-126); Anion Gap 9 mmol/L; Blood Urea Nitrogen 8 mg/dL (7-17); Calcium 8.6 mg/dL (8.4-10.2); Carbon Dioxide 19 mmol/L (22-30); Chloride 108 mmol/L (98-107); Glucose 185 mg/dL (74-99); Non-African American GFR(CKD) >90 (>60 ml/min/1.73 sqM); Potassium 3.7 mmol/L (3.5-5.1); Sodium 136 mmol/L (137-145); Total Bilirubin 0.2 mg/dL (0.2-1.3); Total Protein 5.7 g/dL (6.3-8.2)
[2020-12-28] MEDS: ENOXAPARIN 40 MG/0.4 ML SYRINGE SQ SCH (08:30)
[2020-12-28] MEDS: AZITHROMYCIN 250 MG TAB PO SCH (08:31)
[2020-12-28] MEDS: ALBUTEROL HFA INHALER INHALATION SCH ×4 (09:05→20:37)
--- NOTE | 2020-12-28 09:19 | XR ---
EXAMINATION TYPE: XR chest 1V portable DATE OF EXAM: 12/28/2020 Comparison: 11/30/2017 Clinical History: 60-year-old female pneumonia Findings: Cardiac limits of normal in size. Focal airspace opacity at the right base and mild interstitial dens ity up to the right mid lung. No sizable pleural effusion. Impression: Right basilar pneumonia.
--- NOTE | 2020-12-28 11:24 | P.PN ---
Subjective Progress Note Date: 12/28/20 Principal diagnosis: Acute community-acquired pneumonia 60-year-old female patient, -Citizen [place], with a previous history of legionnaires disease that was treated at [facility], coming in today for a right lung pneumonia. The patient started having symptoms of URI and following that she started expressing pain a cluster right lateral chest area, pleuritic in nature, worse with breathing and cough and. For that reason she came in and the chest x-ray showed pneumonia and the CAT scan of the chest showed an extensive right middle lobe pneumonia and some in the right lower lobe. Based on that, the patient was started and accommodation antibiotics with Rocephin and Zithromax and she was hospitalized. COVID-19 testing is been negative. She has not taken her COVID-19 vaccination for now. She is a former smoker. She quit smoking about 2 months ago. Prior to that she used to smoke about half pack of cigarettes a day. She denies using any marijuana. No history of substance abuse, no alcoholism, no altered mentation, no hemoptysis, no history of malignancy, her vitals are all stable and the patient has no tachycardia or tachypnea. She is awake and alert and there is no altered mentation. On 12/27/2020 patient seen in follow-up on medical surgical floor, she is resting comfortably in bed, she is awake and alert, appears to be in no acute distress, no complaints of chest discomfort, no hemoptysis, she is currently on 2 L of oxygen and the pulse ox of 97%, remains on antibiotics with azithromycin and Rocephin, and Solu-Medrol 40 mg every 8 hours. Her CTA chest showed airspace consolidation in the right lower lobe and right middle lobe, no e vidence of pulmonary embolism. Legionella urine antigen was negative, patient also tested negative for COVID-19, influenza A and B and RSV. Her pro- calcitonin level at admission was elevated at 1.16. White blood cell count on today's labs is relatively stable at 14.6, hemoglobin is 11.8, sodium is 140, potassium is 3.8, chloride is 109, CO2 is 21, BUN is 9, creatinine 0.6. Blood culture has shown no growth. No fever or chills overnight. Vital signs have been stable. The patient is seen today, 12/28/2020 in follow-up on the regular medical floor. She is currently sitting up in bed. Awake and alert in no acute distress. Maintaining O2 saturations in the 90s on room air. She's afebrile. Hemodynamically stable. Blood culture reveals no growth. Sputum culture pending. White count 13.5. Hemoglobin 12.2. Sodium 136. Potassium 3.7. Creatinine 0.54. Glucose 185. Legionella screen negative. Rotavirus negative. Influenza screen negative. RSV negative. She remains on ceftriaxone and azithromycin, bronchodilators, IV Solu-Medrol. Follow-up chest x-ray continues to reveal focal airspace opacity in the right lung base. Objective - Vital Signs Vital signs: Vital Signs Temp 98.2 F 12/28/20 07:43 Pulse 70 12/28/20 07:43 Resp 16 12/28/20 07:43 BP 131/83 12/28/20 07:43 Pulse Ox 96 12/28/20 09:15 Intake & Output 12/27/20 12/28/20 12/28/20 18:59 06:59 18:59 Intake Total 240 590 Balance 240 590 Weight 66.678 kg Intake: Intake, IV Titration 50 Amount cefTRIAXone 1 gm In 50 Sodium Chloride 0.9% 50 ml @ 100 mls/hr IVPB Q12H [facility] Rx#:[id number] Oral 240 540 Other: # Voids 2 2 - Exam GENERAL EXAM: Alert, active, very pleasant 60-year-old female patient, on room air, comfortable in no apparent distress. HEAD: Normocephalic. EYES: Normal reaction of pupils, equal size. NOSE: Clear with pink turbinates. THROAT: No erythema or exudates. NECK: No masses, no JVD. CHEST: No chest wall deformity. LUNGS: Equal air entry with crackles in the right lung base. CVS: S1 and S2 normal with no audible murmur, regular rhythm. ABDOMEN: No hepatosplenomegaly, normal bowel sounds, no guarding or rigidity. SPINE: No scoliosis or deformity SKIN: No rashes CENTRAL NERVOUS SYSTEM: No focal deficits, tone is normal in all 4 extremities. EXTREMITIES: There is no peripheral edema. No clubbing, no cyanosis. Peripheral pulses are intact. - Labs CBC & Chem 7: 12/28/20 06:59 12/28/20 06:59 Labs: Abnormal Lab Results - Last 24 Hours (Table) 12/27/20 12/27/20 12/27/20 Range/Units 06:28 06:28 06:28 WBC 14.65 H (4.50-10.00) X 10*3/uL RBC 3.60 L (4.10-5.20) X 10*6/uL Hgb 11.8 L (12.0-15.0) g/dL Hct 36.2 L (37.2-46.3) % MCV 100.6 H (80.0-97.0) fL MCH 32.8 H (27.0-32.0) pg RDW 15.0 H (11.5-14.5) % Immature Gran # 0.06 H (0.00-0.04) X 10*3/uL Neutrophils # 13.08 H (1.80-7.70) X 10*3/uL Lymphocytes # (1.0-4.8) k/uL Eosinophils # 0 L (0.04-0.35) X 10*3/uL Sodium (137-145) mmol/L Chloride (98-107) mmol/L Carbon Dioxide 21.4 L (21.6-31.8) mmol/L Glucose 155 H (70-110) mg/dL Calcium 8.2 L (8.7-10.3) mg/dL Total Bilirubin <0.20 L (0.30-1.20) mg/dL ALT 45 H (8-44) U/L Alkaline Phosphatase 143 H (41-126) U/L Total Protein 5.6 L (6.2-8.2) g/dL Albumin 3.1 L (3.8-4.9) g/dL Albumin/Globulin Ratio 1.24 L (1.60-3.17) g/dL Procalcitonin 0.93 H (0.02-0.09) ng/mL 12/28/20 12/28/20 Range/Units 06:59 06:59 WBC 13.5 H (4.50-10.00) X 10*3/uL RBC 3.72 L (4.10-5.20) X 10*6/uL Hgb (12.0-15.0) g/dL Hct (37.2-46.3) % MCV 101.8 H D (80.0-97.0) fL MCH (27.0-32.0) pg RDW (11.5-14.5) % Immature Gran # (0.00-0.04) X 10*3/uL Neutrophils # 12.2 H (1.80-7.70) X 10*3/uL Lymphocytes # 0.8 L (1.0-4.8) k/uL Eosinophils # (0.04-0.35) X 10*3/uL Sodium 136 L (137-145) mmol/L Chloride 108 H (98-107) mmol/L Carbon Dioxide 19 L (21.6-31.8) mmol/L Glucose 185 H (70-110) mg/dL Calcium (8.7-10.3) mg/dL Total Bilirubin (0.30-1.20) mg/dL ALT 44 H (8-44) U/L Alkaline Phosphatase (41-126) U/L Total Protein 5.7 L (6.2-8.2) g/dL Albumin 2.9 L (3.8-4.9) g/dL Albumin/Globulin Ratio (1.60-3.17) g/dL Procalcitonin (0.02-0.09) ng/mL Microbiology - Last 24 Hours (Table) 12/27/20 16:16 Gram Stain - Preliminary Sputum Sputum Culture - Preliminary 12/26/20 04:35 Blood Culture - Preliminary Blood No Growth after 48 hours Assessment and Plan Assessment: 1 Acute bilobar pneumonia in the right middle lobe and right lower lobe. CTA chest showed extensive consolidation in the right middle lobe and some of the right lower lobe. Patient presented with pleuritic right-sided chest wall pain. COVID-19 PCR was negative, Legionella urine antigen was negative, RSV, and influenza and B were negative. Consider possibility of bronchoalveolar cell carcinoma if it fails to respond to antibiotics and patient will need biopsies to rule out possibility of cancer 2 Acute hypoxic respiratory failure related to the above 3 Previous history of Legionella pneumonia/legionnaires disease 4 Former smoker Plan: The patient was seen and evaluated by Dr. Cazares Chest x-ray and labs reviewed Continue the current treatment plan We will continue to follow I, the cosigning physician, performed a history & physical examination of the patient. Lungs sounds crackles in the right lung base. Maintaining good O2 saturations in the 90s on room air. I discussed the assessment and plan of care with my nurse practitioner, Elena Nye. I attest to the above note as dictated by her.
--- NOTE | 2020-12-28 14:30 | P.PN ---
Subjective Patient is feeling a lot better today. Shortness of breath is improving. No acute events overnight. Objective - Vital Signs Vital signs: Vital Signs Temp 98.2 F 12/28/20 07:43 Pulse 70 12/28/20 07:43 Resp 16 12/28/20 07:43 BP 131/83 12/28/20 07:43 Pulse Ox 96 12/28/20 09:15 Intake & Output 12/27/20 12/28/20 12/28/20 18:59 06:59 18:59 Intake Total 240 590 Balance 240 590 Weight 66.678 kg Intake: Intake, IV Titration 50 Amount cefTRIAXone 1 gm In 50 Sodium Chloride 0.9% 50 ml @ 100 mls/hr IVPB Q12H DELFINO Rx#:[id number] Oral 240 540 Other: # Voids 2 2 - Exam General: The patient is awake and alert, in no distress Eye: there is normal conjunctiva bilaterally. Neck: The neck is supple, there is no JVD. Cardiovascular: Normal S1-S2, no S3-S4, no murmurs. Respiratory: Lungs clear to auscultation bilaterally Gastrointestinal: Abdomen is soft, nontender Musculoskeletal: There is no pedal edema. Neurological:. Speech is normal. Skin: Skin is warm and dry - Labs CBC & Chem 7: 12/28/20 06:59 12/28/20 06:59 Labs: Abnormal Lab Results - Last 24 Hours (Table) 12/27/20 12/28/20 12/28/20 Range/Units 06:28 06:59 06:59 WBC 13.5 H (3.8-10.6) k/uL RBC 3.72 L (3.80-5.40) m/uL MCV 101.8 H D (80.0-100.0) fL Neutrophils # 12.2 H (1.3-7.7) k/uL Lymphocytes # 0.8 L (1.0-4.8) k/uL Sodium (137-145) mmol/L Chloride (98-107) mmol/L Carbon Dioxide (22-30) mmol/L Glucose (74-99) mg/dL ALT (4-34) U/L Total Protein (6.3-8.2) g/dL Albumin (3.5-5.0) g/dL Procalcitonin 0.93 H 0.52 H (0.02-0.09) ng/mL 12/28/20 Range/Units 06:59 WBC (3.8-10.6) k/uL RBC (3.80-5.40) m/uL MCV (80.0-100.0) fL Neutrophils # (1.3-7.7) k/uL Lymphocytes # (1.0-4.8) k/uL Sodium 136 L (137-145) mmol/L Chloride 108 H (98-107) mmol/L Carbon Dioxide 19 L (22-30) mmol/L Glucose 185 H (74-99) mg/dL ALT 44 H (4-34) U/L Total Protein 5.7 L (6.3-8.2) g/dL Albumin 2.9 L (3.5-5.0) g/dL Procalcitonin (0.02-0.09) ng/mL Microbiology - Last 24 Hours (Table) 12/27/20 16:16 Gram Stain - Preliminary Sputum Sputum Culture - Preliminary 12/26/20 04:35 Blood Culture - Preliminary Blood No Growth after 48 hours Assessment and Plan Assessment: This is a 60-year-old female with no significant past medical history that presented to the emergency room with worsening cough and shortness of breath. Patient will be admitted to the hospital for further management of her medical problems noted below. 1. Right lung pneumonia failed outpatient treatment 2. Sepsis without septic shock 3. Reactive airway disease with mild wheezing with acute hypoxic respiratory failure 4. Hemoptysis, probably secondary to above. 5. Former smoker, quit 2 months ago 6. DVT prophylaxis with subcu Lovenox Today, I reviewed her medication list and lab work results. Leukocytosis is probably steroid induced CT angiogram of the chest showed no evidence of PE and evidence of right lower lobe and right middle lobe pneumonia. Pro-calcitonin only slightly elevated. RSV and influenza negative. COVID-19 screen negative twice. We'll continue antibiotic with IV ceftriaxone and oral azithromycin. Sputum culture pending. Albuterol inhaler as needed. Appreciate pulmonary recommendations, patient was started on IV Solu-Medrol. We will transition to oral prednisone 40 mg daily starting tomorrow Continue supportive care and wean off O2 as tolerated for O2 sats greater than 90% Anticipate discharge home in the morning
[2020-12-29] MEDS: ACETAMINOPHEN TAB 325 MG TAB PO PRN (07:13)
[2020-12-29] MEDS: AZITHROMYCIN 250 MG TAB PO SCH (08:11)
[2020-12-29] MEDS: ENOXAPARIN 40 MG/0.4 ML SYRINGE SQ SCH (08:12)
[2020-12-29 08:30] VITALS: BP 146/81; PULSE 80; RESP 16; TEMP 98.3
[2020-12-29] MEDS: ALBUTEROL HFA INHALER INHALATION SCH ×2 (08:30→11:12)
[2020-12-29] MEDS ORDERED: predniSONE 20 MG TAB PO SCH (09:00)
--- NOTE | 2020-12-29 12:02 | P.PN ---
Subjective Progress Note Date: 12/29/20 Principal diagnosis: Acute community-acquired pneumonia 60-year-old female patient, -[place], with a previous history of legionnaires disease that was treated at [facility], coming in today for a right lung pneumonia. The patient started having symptoms of URI and following that she started expressing pain a cluster right lateral chest area, pleuritic in nature, worse with breathing and cough and. For that reason she came in and the chest x-ray showed pneumonia and the CAT scan of the chest showed an extensive right middle lobe pneumonia and some in the right lower lobe. Based on that, the patient was started and accommodation antibiotics with Rocephin and Zithromax and she was hospitalized. COVID-19 testing is been negative. She has not taken her COVID-19 vaccination for now. She is a former smoker. She quit smoking about 2 months ago. Prior to that she used to smoke about half pack of cigarettes a day. She denies using any marijuana. No history of substance abuse, no alcoholism, no altered mentation, no hemoptysis, no history of malignancy, her vitals are all stable and the patient has no tachycardia or tachypnea. She is awake and alert and there is no altered mentation. On 12/27/2020 patient seen in follow-up on medical surgical floor, she is resting comfortably in bed, she is awake and alert, appears to be in no acute distress, no complaints of chest discomfort, no hemoptysis, she is currently on 2 L of oxygen and the pulse ox of 97%, remains on antibiotics with azithromycin and Rocephin, and Solu-Medrol 40 mg every 8 hours. Her CTA chest showed airspace consolidation in the right lower lobe and right middle lobe, no e vidence of pulmonary embolism. Legionella urine antigen was negative, patient also tested negative for COVID-19, influenza A and B and RSV. Her pro- calcitonin level at admission was elevated at 1.16. White blood cell count on today's labs is relatively stable at 14.6, hemoglobin is 11.8, sodium is 140, potassium is 3.8, chloride is 109, CO2 is 21, BUN is 9, creatinine 0.6. Blood culture has shown no growth. No fever or chills overnight. Vital signs have been stable. The patient is seen today, 12/28/2020 in follow-up on the regular medical floor. She is currently sitting up in bed. Awake and alert in no acute distress. Maintaining O2 saturations in the 90s on room air. She's afebrile. Hemodynamically stable. Blood culture reveals no growth. Sputum culture pending. White count 13.5. Hemoglobin 12.2. Sodium 136. Potassium 3.7. Creatinine 0.54. Glucose 185. Legionella screen negative. Rotavirus negative. Influenza screen negative. RSV negative. She remains on ceftriaxone and azithromycin, bronchodilators, IV Solu-Medrol. Follow-up chest x-ray continues to reveal focal airspace opacity in the right lung base. The patient is seen today 12/29/2020 in follow-up on the regular medical floor. She is awake and alert in no acute distress. Continues to maintain O2 saturations in the mid 90s on room air. She continues with a productive cough of thick yellowish-green sputum. She's afebrile. Hemodynamically stable. Blood cultures revealed no growth. Final sputum culture is revealing moderate normal respiratory nic. No staph aureus for pseudomonas aeruginosa recovered. White count 13.5. Hemoglobin 12.2. Sodium 136. Potassium 3.7. Bicarb 19. Creatinine 0.54. AST 36 ALT 44. Pro-calcitonin 0.52. Objective - Vital Signs Vital signs: Vital Signs Temp 98.3 F 12/29/20 08:00 Pulse 80 12/29/20 08:00 Resp 16 12/29/20 08:00 BP 146/81 12/29/20 08:00 Pulse Ox 95 12/29/20 08:00 Intake & Output 12/28/20 12/29/20 12/29/20 18:59 06:59 18:59 Intake Total 200 Balance 200 Intake: Oral 200 Other: # Voids 1 2 - Exam GENERAL EXAM: Alert, active, very pleasant 60-year-old female patient, on room a ir, comfortable in no apparent distress. HEAD: Normocephalic. EYES: Normal reaction of pupils, equal size. NOSE: Clear with pink turbinates. THROAT: No erythema or exudates. NECK: No masses, no JVD. CHEST: No chest wall deformity. LUNGS: Equal air entry with crackles in the right lung base. CVS: S1 and S2 normal with no audible murmur, regular rhythm. ABDOMEN: No hepatosplenomegaly, normal bowel sounds, no guarding or rigidity. SPINE: No scoliosis or deformity SKIN: No rashes CENTRAL NERVOUS SYSTEM: No focal deficits, tone is normal in all 4 extremities. EXTREMITIES: There is no peripheral edema. No clubbing, no cyanosis. Peripheral pulses are intact. - Labs CBC & Chem 7: 12/28/20 06:59 12/28/20 06:59 Labs: Abnormal Lab Results - Last 24 Hours (Table) 12/28/20 Range/Units 06:59 Procalcitonin 0.52 H (0.02-0.09) ng/mL Microbiology - Last 24 Hours (Table) 12/27/20 16:16 Gram Stain - Final Sputum Sputum Culture - Final 12/26/20 04:35 Blood Culture - Preliminary Blood No Growth after 72 hours Assessment and Plan Assessment: 1 Acute bilobar pneumonia in the right middle lobe and right lower lobe. CTA chest showed extensive consolidation in the right middle lobe and some of the right lower lobe. Patient presented with pleuritic right-sided chest wall pain. COVID-19 PCR was negative, Legionella urine antigen was negative, RSV, and influenza and B were negative. Consider possibility of bronchoalveolar cell c arcinoma if it fails to respond to antibiotics and patient will need biopsies to rule out possibility of cancer. Sputum culture final revealing no growth. 2 Acute hypoxic respiratory failure related to the above number recovered and on room air 3 Previous history of Legionella pneumonia/legionnaires disease, negative on this admission 4 Former smoker Plan: The patient was seen and evaluated by Dr. Cazares Continue the current treatment plan Follow-up chest x-ray in the a.m. Probable discharge in the a.m. We will continue to follow I, the cosigning physician, performed a history & physical examination of the patient. Lungs sounds crackles in the right lung base. Maintaining good O2 saturations in the 90s on room air. I discussed the assessment and plan of care with my nurse practitioner, Elena Nye. I attest to the above note as dictated by her.
--- NOTE | 2020-12-29 12:12 | P.DS ---
Providers Date of admission: 12/26/20 05:42 Expected date of discharge: 12/29/20 Attending physician: Marcia Paige MD Consults: 12/26/20 05:42 Consult Physician Routine Consulting Provider: Ayo Lynne Consult Reason/Comments: hypoxia Do you want consulting provider notified?: Yes 12/26/20 09:10 Consult Physician Routine Consulting Provider: Ayo Lynne Consult Reason/Comments: Hemoptysis Do you want consulting provider notified?: Yes Primary care physician: Stated None Hospital Course: This is a 60-year-old female with no significant past medical history that presented to the emergency room with worsening cough and shortness of breath. Patient will be admitted to the hospital for further management of her medical problems noted below. 1. Right lung pneumonia failed outpatient treatment 2. Sepsis without septic shock 3. Reactive airway disease with mild wheezing with acute hypoxic respiratory failure 4. Hemoptysis, probably secondary to above. 5. Former smoker, quit 2 months ago 6. DVT prophylaxis with subcu Lovenox CT angiogram of the chest showed no evidence of PE and evidence of right lower lobe and right middle lobe pneumonia. Pro-calcitonin only slightly elevated. RSV and influenza negative. COVID-19 screen negative twice. Started on antibiotic with IV ceftriaxone and oral azithromycin. We will finish antibiotic course with Augmentin at home Sputum culture showed respiratory nic. Albuterol inhaler as needed. Seen and evaluated by pulmonary. We will finish steroid course with prednisone 40 mg daily for 3 more days Patient was seen and evaluated by me on the day of discharge.\ Physical exam: General: The patient is awake and alert, in no distress Eye: there is normal conjunctiva bilaterally. Neck: The neck is supple, there is no JVD. Cardiovascular: Normal S1-S2, no S3-S4, no murmurs. Respiratory: Lungs clear to auscultation bilaterally Gastrointestinal: Abdomen is soft, nontender Musculoskeletal: There is no pedal edema. Neurological:. Speech is normal. Skin: Skin is warm and dry Patient Condition at Discharge: Fair Plan - Discharge Summary Discharge Rx Participant: Yes New Discharge Prescriptions: New Amoxicillin/Potassium Clav [Augmentin 875-125 Tablet] 1 tab PO Q12HR 3 Days #6 tab Albuterol Inhaler [Ventolin Hfa Inhaler] 2 puff INHALATION RT-QID #1 inh predniSONE [Deltasone] 40 mg PO DAILY #6 tab Discontinued Pseudoephedrine HCl [Sudogest] 60 mg PO Q6H PRN PRN Reason: Congestion Discharge Medication List Albuterol Inhaler [Ventolin Hfa Inhaler] 2 puff INHALATION RT-QID #1 inh 12/29/20 [Rx] Amoxicillin/Potassium Clav [Augmentin 875-125 Tablet] 1 tab PO Q12HR 3 Days #6 tab 12/29/20 [Rx] predniSONE [Deltasone] 40 mg PO DAILY #6 tab 12/29/20 [Rx] Follow up Appointment(s)/Referral(s): None,Stated [Primary Care Provider] - 1-2 days Ayo Lynne MD [STAFF PHYSICIAN] - 1 Week Discharge Disposition: HOME SELF-CARE
== END 2020-12-29 13:43 | disposition home or self-care (01) | DRG 871 ==
LOC: EC 04:10 → 4SSUR 05:42 → 6PED 12-27 13:34
PROVIDERS: ADMIT Internal Medicine; ATTEND Internal Medicine
PROC: 3E0F7SF Introduction of Other Gas into Respiratory Tract, Via Natural or Artificial Opening (ICD-10-PCS; principal; 2020-12-26)
DX: A41.9 Sepsis, unspecified organism (principal); J96.01 Acute respiratory failure with hypoxia; A48.1 Legionnaires' disease; J18.1 Lobar pneumonia, unspecified organism; J44.0 Chronic obstructive pulmonary disease with (acute) lower respiratory infection; R04.2 Hemoptysis; T38.0X5A Adverse effect of glucocorticoids and synthetic analogues, initial encounter; D72.829 Elevated white blood cell count, unspecified; Z20.822 Contact with and (suspected) exposure to COVID-19; Z87.891 Personal history of nicotine dependence; X58.XXXA Exposure to other specified factors, initial encounter; Z98.51 Tubal ligation status
CPT/HCPCS: 36415; 71045; 71275; 76705; 80053; 83605; 83615; 83735; 84145; 85025; 85610; 85730; 86140; 87040; 87070; 87205; 87449; 87502; 87634; 87635; 93005; 94640; 96365; 96375; 99291

== ENCOUNTER 2021-03-12 23:04 | Emergency (ER) | payer OTHER ==
[2021-03-12 23:15] VITALS: RESP 18
[2021-03-13] MEDS ORDERED: ONDANSETRON 4 MG/2 ML VIAL IVP STA (01:11)
[2021-03-13] MEDS ORDERED: SODIUM CHLORIDE 0.9% 1,000 ML IV STA (01:11)
[2021-03-13] MEDS ORDERED: DEXAMETHASONE SOD PHOSPHATE 10 MG/ML 1 ML VIAL IVP STA (01:33)
--- NOTE | 2021-03-13 01:34 | ED ---
Nausea/Vomiting/Diarrhea HPI - General Chief complaint: Nausea/Vomiting/Diarrhea Stated complaint: diarrhea, vomiting Time Seen by Provider: 03/13/21 00:58 Source: patient, RN notes reviewed Mode of arrival: ambulatory Limitations: no limitations - History of Present Illness Initial comments: Patient is a 60-year-old female that presents to the emergency department complaining of nausea vomiting diarrhea. She notes she woke up last night covert and vomiting diarrhea. She notes she also fever but took Tylenol prior to arrival which broke to fever. She notes she is has been feeling well. She notes she has abdominal pain in the right lower quadrant. She was otherwise a well-appearing 60-year-old female in mild amounts of pain and discomfort. Patient denied any chest pain shortness of breath headache constipation fatigue chills change in diet. - Related Data Previous Rx's Medication Instructions Recorded Albuterol Inhaler [Ventolin Hfa 2 puff INHALATION RT-QID #1 inh 12/29/20 Inhaler] Amoxicillin/Potassium Clav 1 tab PO Q12HR 3 Days #6 tab 12/29/20 [Augmentin 875-125 Tablet] predniSONE [Deltasone] 40 mg PO DAILY #6 tab 12/29/20 predniSONE 50 mg PO DAILY #5 tab 03/13/21 Allergies Allergy/AdvReac Type Severity Reaction Status Date / Time No Known Allergies Allergy Verified 03/12/21 23:15 Review of Systems ROS Statement: Those systems with pertinent positive or pertinent negative responses have been documented in the HPI. ROS Other: All systems not noted in ROS Statement are negative. Past Medical History Past Medical History: No Reported History Additional Past Medical History / Comment(s): Legionnaires Disease History of Any Multi-Drug Resistant Organisms: None Reported Past Surgical History: Tubal Ligation Past Anesthesia/Blood Transfusion Reactions: No Reported Reaction Past Psychological History: No Psychological Hx Reported Smoking Status: Former smoker Past Alcohol Use History: Occasional Past Drug Use History: Marijuana General Exam Limitations: no limitations General appearance: alert, in no apparent distress Head exam: Present: atraumatic, normocephalic, normal inspection Eye exam: Present: normal appearance, PERRL, EOMI. Absent: scleral icterus, conjunctival injection, periorbital swelling ENT exam: Present: normal exam, mucous membranes moist Neck exam: Present: normal inspection Respiratory exam: Present: normal lung sounds bilaterally. Absent: respiratory distress, wheezes, rales, rhonchi, stridor Cardiovascular Exam: Present: regular rate, normal rhythm, normal heart sounds. Absent: systolic murmur, diastolic murmur, rubs, gallop, clicks GI/Abdominal exam: Present: soft, tenderness (Right lower quadrant), normal bowel sounds. Absent: distended, guarding, rebound, rigid Extremities exam: Present: normal inspection, full ROM, normal capillary refill. Absent: tenderness, pedal edema, joint swelling, calf tenderness Neurological exam: Present: alert, oriented X3 Psychiatric exam: Present: normal affect, normal mood Skin exam: Present: warm, dry, intact, normal color. Absent: rash Course Vital Signs 03/12/21 23:12 Temperature 101.3 F H Pulse Rate 103 H Respiratory 18 Rate Blood Pressure 114/65 O2 Sat by Pulse 95 Oximetry Medical Decision Making - Medical Decision Making 60-year-old female complaining of nausea vomiting diarrhea. Labs, 1 L normal saline, CT of the abdomen and pelvis, Covid test ordered. Covid test positive, patient does not meet criteria for monoclonal antibodies. Labs are unremarkable and within normal limits. Patient is able discharge home with follow-up primary care. Case discussed with Dr. Magallanes - Lab Data Result diagrams: 03/13/21 01:26 03/13/21 01:26 Lab Results 03/12/21 03/13/21 03/13/21 Range/Units 23:18 01:26 01:26 WBC 4.7 (3.8-10.6) k/uL RBC 4.13 (3.80-5.40) m/uL Hgb 13.0 (11.4-16.0) gm/dL Hct 41.0 (34.0-46.0) % MCV 99.2 (80.0-100.0) fL MCH 31.6 (25.0-35.0) pg MCHC 31.8 (31.0-37.0) g/dL RDW 14.4 (11.5-15.5) % Plt Count 190 (150-450) k/uL MPV 7.5 Neutrophils % 70 % Lymphocytes % 22 % Monocytes % 4 % Eosinophils % 1 % Basophils % 1 % Neutrophils # 3.3 (1.3-7.7) k/uL Lymphocytes # 1.1 (1.0-4.8) k/uL Monocytes # 0.2 (0-1.0) k/uL Eosinophils # 0.0 (0-0.7) k/uL Basophils # 0.0 (0-0.2) k/uL Sodium 133 L (137-145) mmol/L Potassium 3.7 (3.5-5.1) mmol/L Chloride 102 (98-107) mmol/L Carbon Dioxide 24 (22-30) mmol/L Anion Gap 7 mmol/L BUN 11 (7-17) mg/dL Creatinine 0.89 (0.52-1.04) mg/dL Est GFR (CKD-EPI)AfAm 83 (>60 ml/min/1.73 sqM) Est GFR (CKD-EPI)NonAf 72 (>60 ml/min/1.73 sqM) Glucose 86 (74-99) mg/dL Calcium 8.7 (8.4-10.2) mg/dL Total Bilirubin 1.0 (0.2-1.3) mg/dL AST 37 H (14-36) U/L ALT 15 (4-34) U/L Alkaline Phosphatase 91 (38-126) U/L Total Protein 6.6 (6.3-8.2) g/dL Albumin 3.9 (3.5-5.0) g/dL Amylase 41 (30-110) U/L Lipase 108 (23-300) U/L Coronavirus (PCR) Detected A (Not Detectd) Disposition Clinical Impression: COVID, Dehydration, Nausea & vomiting Disposition: HOME SELF-CARE Condition: Stable Instructions (If sedation given, give patient instructions): Coronavirus Disease 2019 (COVID-19), Acute Nausea and Vomiting (ED) Additional Instructions: Please return to the Emergency Department if symptoms worsen or any other concerns. Follow-up with primary care in 1-2 days. Take prednisone as prescribed. Take Zofran as prescribed. Increase fluids. Take Tylenol Motrin alternating every 3 hours as needed for aches pains or fevers. Prescriptions: predniSONE 50 mg PO DAILY #5 tab Is patient prescribed a controlled substance at d/c from ED?: No Referrals: None,Stated [Primary Care Provider] - 1-2 days Time of Disposition: 02:34
[2021-03-13 02:00] LABS: Basophils % (A) 1 %; Eosinophils % (A) 1 %; Lymphocytes # (A) 1.1 k/uL (1.0-4.8); Lymphocytes % (A) 22 %; MCH 31.6 pg (25.0-35.0); MCHC 31.8 g/dL (31.0-37.0); MCV 99.2 fL (80.0-100.0); Mean Platelet Volume 7.5; Monocytes # (A) 0.2 k/uL (0-1.0); Monocytes % (A) 4 %; Neutrophils # (A) 3.3 k/uL (1.3-7.7); Neutrophils % (A) 70 %; Platelet Count 190 k/uL (150-450); RBC 4.13 m/uL (3.80-5.40); RDW 14.4 % (11.5-15.5); WBC 4.7 k/uL (3.8-10.6)
[2021-03-13] MEDS ORDERED: ONDANSETRON 4 MG ODT STARTER PACK 2 TAB BTL PO STA (02:02)
[2021-03-13 02:20] LABS: Albumin 3.9 g/dL (3.5-5.0); Calcium 8.7 mg/dL (8.4-10.2); Potassium 3.7 mmol/L (3.5-5.1); Total Protein 6.6 g/dL (6.3-8.2)
[2021-03-13 05:11] VITALS: BP 131/67; PULSE 92; TEMP 99.9
== END 2021-03-13 04:40 | disposition home or self-care (01) ==
LOC: EC 23:04
DX: U07.1 COVID-19 (principal); R11.2 Nausea with vomiting, unspecified; E86.0 Dehydration; F12.90 Cannabis use, unspecified, uncomplicated; Z98.51 Tubal ligation status; Z87.891 Personal history of nicotine dependence
CPT/HCPCS: 99284; 96374; 96375; 96361; 36415; 80053; 82150; 83690; 85025; 87635; J1100; J2405; S0119

== ENCOUNTER 2021-03-18 08:59 | Inpatient (IN) | payer OTHER ==
[2021-03-18] MEDS ORDERED: ACETAMINOPHEN TAB 325 MG TAB PO STA (09:07)
[2021-03-18] MEDS ORDERED: IBUPROFEN 600 MG TAB PO STA (09:07)
[2021-03-18] MEDS ORDERED: ALBUTEROL HFA INHALER INHALATION STA (09:08)
[2021-03-18 09:40] LABS: Basophils % (A) 1 %; Eosinophils # (A) 0.1 k/uL (0-0.7); Eosinophils % (A) 2 %; Lymphocytes # (A) 0.8 k/uL (1.0-4.8); Lymphocytes % (A) 12 %; MCH 30.7 pg (25.0-35.0); MCHC 31.8 g/dL (31.0-37.0); MCV 96.5 fL (80.0-100.0); Mean Platelet Volume 7.3; Monocytes # (A) 0.1 k/uL (0-1.0); Monocytes % (A) 2 %; Neutrophils # (A) 5.9 k/uL (1.3-7.7); Neutrophils % (A) 83 %; Platelet Count 345 k/uL (150-450); RBC 4.24 m/uL (3.80-5.40); RDW 14.3 % (11.5-15.5); WBC 7.1 k/uL (3.8-10.6)
[2021-03-18 09:58] LABS: ALT 23 U/L (4-34); AST 32 U/L (14-36); African American GFR (CKD) >90 (>60 ml/min/1.73 sqM); Albumin 3.4 g/dL (3.5-5.0); Alkaline Phosphatase 66 U/L (38-126); Anion Gap 7 mmol/L; Blood Urea Nitrogen 12 mg/dL (7-17); Calcium 8.5 mg/dL (8.4-10.2); Carbon Dioxide 27 mmol/L (22-30); Chloride 102 mmol/L (98-107); Glucose 99 mg/dL (74-99); LDH 1050 U/L (313-618); Non-African American GFR(CKD) 88 (>60 ml/min/1.73 sqM); Potassium 3.2 mmol/L (3.5-5.1); Sodium 136 mmol/L (137-145); Total Bilirubin 0.5 mg/dL (0.2-1.3); Total Protein 6.3 g/dL (6.3-8.2)
--- NOTE | 2021-03-18 10:24 | XR ---
EXAMINATION TYPE: XR chest 2V DATE OF EXAM: 03/18/2021 COMPARISON: 12/28/2020 INDICATION: Hemoptysis,Covid TECHNIQUE: Single frontal view of the chest is obtained. FINDINGS: The heart size is normal. The pulmonary vasculature is normal. There is diffuse increased lung markings diffusely. Findings are nonspecific but can be compatible wi th atypical pneumonia. IMPRESSION: 1. Diffuse increased lung markings can be compatible with atypical pneumonia.
--- NOTE | 2021-03-18 11:20 | CT ---
EXAMINATION TYPE: CT chest angio for PE DATE OF EXAM: 03/18/2021 COMPARISON: 12/26/2020 HISTORY: 60-year-old female Elevated d dimer, covid positive TECHNIQUE: Contiguous axial scanning of the chest performed with IV Contrast, patient injected with 1 00 mL of Isovue 370. Coronal/sagittal MIP reconstructions performed. CT DLP: 232.5 mGycm Automated exposure control for dose reduction was used. FINDINGS: Heart normal size with a small anterior pericardial effusion measuring 7 mm, slightly increased from prior. Satisfactory opacification of the pulmonary arterial system without evidence for pulmonary embolus. Aorta normal caliber with mild atherosclerotic arch calcifications and bovine configuration to the ao rtic arch. Redemonstrated mediastinal and bilateral hilar lymphadenopathy. Lymph nodes are either stable or slig htly larger. For example: 3.4 x 1.9 cm right hilum versus 3.3 x 1.6 cm, previously. Lower right paratracheal 1.3 cm versus 1.2 cm, previously. 1.1 cm AP window versus 7 mm, previously. 2.4 x 1.1 cm left hilum versus only 7 mm, previously. Additional hilar lymph nodes have increased in size in the interval. Extensive right middle lobe airspace disease seen previously has improved. However, new lower lung jose bpleural groundglass and diffuse bilateral articulations and septal lines have worsened in the interv al. Moderate centrilobular emphysema. Prominent dependent atelectasis in the lungs. No pleural effusion. Visualized upper abdomen shows no gross abnormality. Bones: Mild to moderate degenerative disc disease mid thoracic spine. No osseous process. IMPRESSION: 1. NO EVIDENCE FOR PULMONARY EMBOLUS. COPD WITH MODERATE EMPHYSEMA. THE PREVIOUS EXTENSIVE AIRSPACE DISEASE IN THE RIGHT MIDDLE LOBE HAS RESOLVED. 2. HOWEVER, THERE IS PERSISTENT AND SOME INCREASING MEDIASTINAL AND BILATERAL HILAR LYMPHADENOPATHY C URRENTLY MEASURING UP TO 3.4 X 1.9 CM AT THE RIGHT HILUM (VERSUS 3.3 X 1.6 CM, PREVIOUSLY). OTHER HIL AR NODES ARE NEW. CORRELATE FOR ANY HISTORY OF GRANULOMATOUS DISEASE SUCH SARCOIDOSIS. CONSIDER AT YPICAL FUNGAL OR MYCOBACTERIAL INFECTIONS. CONTINUED FOLLOW-UP TO EXCLUDE LYMPHOMA/METASTATIC DISEASE . REACTIVE LYMPHADENOPATHY IS FAVORED AT THIS TIME. 3. NEW SUBPLEURAL GROUNDGLASS IN THE LOWER LUNGS AND DIFFUSE NEW SEPTAL LINES/INTERSTITIAL LUNG DISEA SE. FINDINGS SUGGESTS AN INFECTIOUS OR INFLAMMATORY ETIOLOGY INCLUDING THE POSSIBILITY OF COVID PNEUM ONIA. 4. A SMALL ANTERIOR PERICARDIAL EFFUSION MEASURING 7 MM THICK.
[2021-03-18] MEDS ORDERED: ACETAMINOPHEN TAB 325 MG TAB PO PRN (11:36)
[2021-03-18] MEDS ORDERED: IBUPROFEN 400 MG TAB PO PRN (11:36)
--- NOTE | 2021-03-18 11:45 | ED ---
URI HPI - General Chief Complaint: Upper Respiratory Infection Stated Complaint: Coughing up blood Time Seen by Provider: 03/18/21 09:07 Source: patient, RN notes reviewed Mode of arrival: ambulatory Limitations: no limitations - History of Present Illness Initial Comments: Patient is a 60-year-old female that presents to the emergency department for re peat visit. She notes with sinus: On 03/13/2021. She notes that she returns today with increasing shortness of breath and fever. She notes she took Tylenol Motrin at approximately 3 AM. Her arrival to the ER was around 9:00 in the morning. Patient does not use of low oxygen home. Her oxygen at triage was 88%. Patient was otherwise well-appearing in no apparent distress. She denied any chest pain headache nausea vomiting diarrhea constipation fatigue chills. - Related Data Home Medications Medication Instructions Recorded Confirmed Albuterol Sulfate [Proair Hfa] 2 puff INHALATION RT-QID PRN 03/18/21 03/18/21 Allergies Allergy/AdvReac Type Severity Reaction Status Date / Time No Known Allergies Allergy Verified 03/18/21 10:43 Review of Systems ROS Statement: Those systems with pertinent positive or pertinent negative responses have been documented in the HPI. ROS Other: All systems not noted in ROS Statement are negative. Past Medical History Past Medical History: No Reported History Additional Past Medical History / Comment(s): Legionnaires Disease History of Any Multi-Drug Resistant Organisms: None Reported Past Surgical History: Tubal Ligation Past Anesthesia/Blood Transfusion Reactions: No Reported Reaction Past Psychological History: No Psychological Hx Reported Smoking Status: Former smoker Past Alcohol Use History: Occasional Past Drug Use History: Marijuana General Exam Limitations: no limitations General appearance: alert, in no apparent distress Head exam: Present: atraumatic, normocephalic, normal inspection Eye exam: Present: normal appearance, PERRL, EOMI. Absent: scleral icterus, conjunctival injection, periorbital swelling ENT exam: Present: normal exam, mucous membranes moist Neck exam: Present: normal inspection Respiratory exam: Present: normal lung sounds bilaterally. Absent: respiratory distress, wheezes, rales, rhonchi, stridor Cardiovascular Exam: Present: regular rate, normal rhythm, normal heart sounds. Absent: systolic murmur, diastolic murmur, rubs, gallop, clicks Extremities exam: Present: normal inspection, full ROM, normal capillary refill. Absent: tenderness, pedal edema, joint swelling, calf tenderness Neurological exam: Present: alert, oriented X3 Psychiatric exam: Present: normal affect, normal mood Skin exam: Present: warm, dry, intact, normal color. Absent: rash Course Vital Signs 03/18/21 03/18/21 09:00 09:24 Temperature 103.3 F H Pulse Rate 120 H Respiratory 18 20 Rate Blood Pressure 131/75 O2 Sat by Pulse 88 L Oximetry Medical Decision Making - Medical Decision Making 52-year-old female Covid-positive increasing shortness of breath. Labs, EKG, chest x-ray, 2 L of oxygen via nasal cannula ordered. Labs: CBC CMP unremarkable, d-dimer elevated at 0.99. CT of the chest ordered. Chest x-ray and CT show diffuse bilateral infiltrates consistent with a atypical pneumonia. Given patient's vital signs, need for supportive oxygen and imaging findings patient will be admitted. Case discussed with Dr. Amador. Dr. Hong was consulted looks of the abdomen with pulmonary and infectious disease on consult. - Lab Data Result diagrams: 03/18/21 09:15 03/18/21 09:15 Lab Results 03/18/21 03/18/21 03/18/21 Range/Units 09:15 09:15 09:15 WBC 7.1 (3.8-10.6) k/uL RBC 4.24 (3.80-5.40) m/uL Hgb 13.0 (11.4-16.0) gm/dL Hct 41.0 (34.0-46.0) % MCV 96.5 (80.0-100.0) fL MCH 30.7 (25.0-35.0) pg MCHC 31.8 (31.0-37.0) g/dL RDW 14.3 (11.5-15.5) % Plt Count 345 (150-450) k/uL MPV 7.3 Neutrophils % 83 % Lymphocytes % 12 % Monocytes % 2 % Eosinophils % 2 % Basophils % 1 % Neutrophils # 5.9 (1.3-7.7) k/uL Lymphocytes # 0.8 L (1.0-4.8) k/uL Monocytes # 0.1 (0-1.0) k/uL Eosinophils # 0.1 (0-0.7) k/uL Basophils # 0.0 (0-0.2) k/uL D-Dimer 0.99 H (<0.60) mg/L FEU Sodium 136 L (137-145) mmol/L Potassium 3.2 L (3.5-5.1) mmol/L Chloride 102 (98-107) mmol/L Carbon Dioxide 27 (22-30) mmol/L Anion Gap 7 mmol/L BUN 12 (7-17) mg/dL Creatinine 0.75 (0.52-1.04) mg/dL Est GFR (CKD-EPI)AfAm >90 (>60 ml/min/1.73 sqM) Est GFR (CKD-EPI)NonAf 88 (>60 ml/min/1.73 sqM) Glucose 99 (74-99) mg/dL Plasma Lactic Acid Phillip (0.7-2.0) mmol/L Calcium 8.5 (8.4-10.2) mg/dL Total Bilirubin 0.5 (0.2-1.3) mg/dL AST 32 (14-36) U/L ALT 23 (4-34) U/L Alkaline Phosphatase 66 (38-126) U/L Lactate Dehydrogenase 1050 H (313-618) U/L C-Reactive Protein 17.0 H (<1.0) mg/dL Total Protein 6.3 (6.3-8.2) g/dL Albumin 3.4 L (3.5-5.0) g/dL 03/18/21 Range/Units 09:15 WBC (3.8-10.6) k/uL RBC (3.80-5.40) m/uL Hgb (11.4-16.0) gm/dL Hct (34.0-46.0) % MCV (80.0-100.0) fL MCH (25.0-35.0) pg MCHC (31.0-37.0) g/dL RDW (11.5-15.5) % Plt Count (150-450) k/uL MPV Neutrophils % % Lymphocytes % % Monocytes % % Eosinophils % % Basophils % % Neutrophils # (1.3-7.7) k/uL Lymphocytes # (1.0-4.8) k/uL Monocytes # (0-1.0) k/uL Eosinophils # (0-0.7) k/uL Basophils # (0-0.2) k/uL D-Dimer (<0.60) mg/L FEU Sodium (137-145) mmol/L Potassium (3.5-5.1) mmol/L Chloride (98-107) mmol/L Carbon Dioxide (22-30) mmol/L Anion Gap mmol/L BUN (7-17) mg/dL Creatinine (0.52-1.04) mg/dL Est GFR (CKD-EPI)AfAm (>60 ml/min/1.73 sqM) Est GFR (CKD-EPI)NonAf (>60 ml/min/1.73 sqM) Glucose (74-99) mg/dL Plasma Lactic Acid Phillip 1.5 (0.7-2.0) mmol/L Calcium (8.4-10.2) mg/dL Total Bilirubin (0.2-1.3) mg/dL AST (14-36) U/L ALT (4-34) U/L Alkaline Phosphatase (38-126) U/L Lactate Dehydrogenase (313-618) U/L C-Reactive Protein (<1.0) mg/dL Total Protein (6.3-8.2) g/dL Albumin (3.5-5.0) g/dL - EKG Data -: EKG Interpreted by Ri EKG shows normal: sinus rhythm Rate: normal EKG Comments: Ventricular rate 101 bpm, UT interval 152 ms, QRS duration 80 ms, QTC 412 ms, sinus tachycardia, otherwise normal ECG. - Radiology Data Radiology results: report reviewed, image reviewed CT of the chest: No evidence for pulmonary embolus. COPD with moderate emphysema. However there is persistent and some increasing mediastinal and bilateral hilar lymphadenopathy. New subpleural groundglass in the lower lungs diffusely septal lines interstitial lung disease findings suggest an infectious or inflammatory etiologies including the possibility of Covid pneumonia. A small anterior pericardial effusion measuring 7 mm thick. Chest x-ray: Diffuse increased lung markings can be compatible with atypical pneumonia. Disposition Clinical Impression: Pneumonia due to COVID-19 virus, Hypoxia Disposition: ADMITTED IP TO THIS HOSP Condition: Stable Is patient prescribed a controlled substance at d/c from ED?: No Referrals: None,Stated [Primary Care Provider] - 1-2 days Time of Disposition: 11:41
[2021-03-18] MEDS: SODIUM CHLORIDE 0.9% 1,000 ML IV SCH ×2 (12:31→20:30)
--- NOTE | 2021-03-18 15:14 | HP ---
HISTORY AND PHYSICAL DATE OF SERVICE: 03/18/2021 CHIEF COMPLAINTS: Shortness of breath, coughing up blood and Covid 19. HISTORY OF PRESENT ILLNESS: This 60-year-old woman with a past medical history of legionnaires disease, tubal ligation, nicotine dependence, not being followed by any primary physician outpatient setting, has not taken the Covid vaccine because of concerns of Legionnaire's disease in the right lung and previous history of pneumonia. 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 Inflammatory markers of Covid 19 also elevated. The patient admitted for further evaluation and treatment. Influenza is negative. There is no history of fever, rigors or chills. No history of headache, loss of consciousness, seizures at this time. PAST MEDICAL HISTORY: History of pneumonia. Apparently Legionnaire's disease. Legionella antigen is negative per chart. History of nicotine dependence. Occasional alcohol and THC. MEDICATIONS: Prior to admission include home medications are: Albuterol p.r.n. ALLERGIES: None. FAMILY HISTORY: No history of heart disease or strokes in the family. SOCIAL HISTORY: Previous history of smoking. Occasional alcohol and THC. REVIEW OF SYSTEMS: ENT: No diminished vision. No diminished hearing. CARDIOVASCULAR system: No angina or palpitations. RESPIRATIONS: As mentioned earlier. GI: No nausea and vomiting. : No dysuria. NERVOUS SYSTEM: No numbness or weakness. ALLERGY/IMMUNOLOGY: No asthma or hayfever. MUSCULOSKELETAL: As mentioned earlier. HEMATOLOGY/ONCOLOGY: No history of anemia. ENDOCRINE: No history of diabetes or hypothyroidism. CONSTITUTIONAL: As mentioned earlier. DERMATOLOGY: Negative. RHEUMATOLOGY: Negative. PSYCHIATRIC: As mentioned earlier. PHYSICAL EXAMINATION: Alert and oriented times three. Pulse is 120, blood pressure 130/74, respiration 18, temperature 103.2, pulse ox 88% on room air. HEENT: Conjunctivae normal. Oral mucosa moist. NECK is no JVD. No carotid bruit. No lymph node enlargement. CARDIOVASCULAR S1, S2. RESPIRATIONS: Breath sounds diminished in the bases. A few scattered rhonchi. ABDOMEN: Soft, nontender. No mass palpable. LEGS: No edema. No swelling. NERVOUS SYSTEM: Higher functions as mentioned earlier. Moves all 4 limbs. No focal motor or sensory deficits. LYMPHATICS: No lymph nodes palpable in the neck, axillae or groin. SKIN: No ulcer, no eash and no bleeding. JOINTS: No active deforming arthropathy. LABS: Reviewed and include CBC within normal limits except lymphopenia 0.8, D-dimer 0.9, sodium 130, potassium 3.2. Other labs are noted. ASSESSMENT: 1. Acute Covid 19 infection with acute Covid pneumonia with acute hypoxic respiratory failure. 2. Elevated D-dimer without any evidence of pulmonary embolus. 3. Hyponatremia. 4. Hypokalemia. 5. Lymphopenia post secondary to Covid 19. 6. Elevated inflammatory markers of Covid 19. 7. History of previous pneumonia, possibly Legionnaire's. 8. History of nicotine dependence. 9. History of THC. 10.FULL CODE. RECOMMENDATIONS AND DISCUSSION: This 60-year-old woman who presented with multiple complex medical issues, we will monitor the patient closely, continue the current medications, management and symptomatic treatment. Continue with the bronchodilators. Continue the Lovenox. Continue with usual medications for Covid 19. Closely follow with Infectious Disease, Pulmonary. The patient might be a candidate for Remdesivir. Further recommendations to follow. I would also recommend the patient follow up with primary physician. MMROCKYL / LILLIANAN: [id number] / SAADIA
--- NOTE | 2021-03-18 15:54 | P.CNPUL ---
History of Present Illness Consult date: 03/18/21 Reason for consult: dyspnea History of present illness: 60-year-old female patient, -Congolese, who presented emergency department on 03/13/2021. The patient at that time was checked positive for COVID 19 infection. Her initial symptoms were consistent with nausea vomiting and emesis. The patient also noted fever for which she was taking Tylenol. She was also having some abdominal pain. No respiratory difficulties. He denied having any chest pain or cough or sputum production. At that time, she had a temperature 11.3. She was hemodynamically stable. Pulse ox was 95% on room air. Her blood work showed normal LFTs, normal electrolytes, white cell count was at 4.7 with hemoglobin of 13. The patient was given hydration. The patient was given prednisone and Zofran and Motrin. She was given a total of 50 mg of prednisone to be taken for the next 5 days and she was discharged home. The patient presented back to the burst department today because of shortness of breath and ongoing fever. She has been taken Tylenol and Motrin. She arrived to the emergency department. Her pulse ox was 88%. She was having no apparent significant respiratory distress. Denies having any chest pain. She was still febrile with a temperature of 103.3. Repeat blood work showed a white cell count of 7.1 with a hemoglobin of 13. Sodium was at 136. BM was 12 with a creatinine of 0.7. LDH was 1050. CRP level was 17. Albumin was at 3.4. Electrolyte were normal. LFTs were normal. The lactic acid level was at 1.5. Chest x-ray was done and the patient was found to have diffuse lung markings compatible with a pneumonia and a CT angiogram also showed no evidence of any pulmonary embolism. She does have underlying COPD/emphysema. Note that the patient was hospitalized a few months back for a right middle lobe pneumonia and that pneumonia that is covered. There was some persistently increased mediastinal and bilateral hilar lymphadenopathy measuring up to 3.4 cm at the right hilum. There was also new subpleural groundglass bilateral pulmonary infiltrates consistent with Covid 19 related pneumonia. There was also a small anterior pericardial effusion noted measuring 7 mm in size. Based on that, the patient was hospitalized. Review of Systems Constitutional: Reports chills, Reports fatigue, Reports fever, fatigue, chills Eyes: denies as per HPI, denies blurred vision, denies bulging eye, denies decreased vision, denies diplopia, denies discharge, denies dry eye, denies irritation, denies itching, denies pain, denies photophobia, denies loss of peripheral vision, denies loss of vision, denies tunnel vision/blind spots Ears: deny: decreased hearing, ear discharge, earache, tinnitus Ears, nose, mouth and throat: Reports as per HPI Breasts: absent: as per HPI, change in shape, gynecomastia, masses, nipple discharge, pain, skin changes, swelling Cardiovascular: Reports as per HPI, Reports chest pain, Reports dyspnea on exertion Respiratory: Reports as per HPI, Reports cough, Reports dyspnea, Reports wheezing, shortness of breath Gastrointestinal: Reports as per HPI Genitourinary: Reports as per HPI Menstruation: Reports as per HPI Musculoskeletal: Reports as per HPI Musculoskeletal: absent: ankle pain, ankle stiffness, ankle swelling, as per HPI, elbow pain, elbow stiffness, elbow swelling, foot pain, foot stiffness, foot swelling, hand pain, hand stiffness, hand swelling, hip pain, hip stiffness, hip swelling, knee pain, knee stiffness, knee swelling, shoulder pain, shoulder stiffness, shoulder swelling, wrist pain, wrist stiffness, wrist swelling Integumentary: Reports as per HPI Neurological: Reports as per HPI Psychiatric: Reports as per HPI Endocrine: Reports as per HPI Hematologic/Lymphatic: Reports as per HPI Allergic/Immunologic: Reports as per HPI Past Medical History Past Medical History: No Reported History Additional Past Medical History / Comment(s): Legionnaires Disease, hospitalization back in December 2020 for right middle lobe pneumonia, recovered History of Any Multi-Drug Resistant Organisms: None Reported Past Surgical History: Tubal Ligation Past Anesthesia/Blood Transfusion Reactions: No Reported Reaction Past Psychological History: No Psychological Hx Reported Smoking Status: Former smoker Past Alcohol Use History: Occasional Past Drug Use History: Marijuana Medications and Allergies Home Medications Medication Instructions Recorded Confirmed Type Albuterol Sulfate [Proair Hfa] 2 puff INHALATION RT-QID PRN 03/18/21 03/18/21 History Allergies Allergy/AdvReac Type Severity Reaction Status Date / Time No Known Allergies Allergy Verified 03/18/21 10:43 Physical Exam Vitals: Vital Signs Temp Pulse Resp BP Pulse Ox 03/18/21 12:32 99.5 F 89 20 114/67 97 03/18/21 09:24 20 03/18/21 09:00 103.3 F H 120 H 18 131/75 88 L Intake and Output 03/18/21 03/18/21 03/18/21 06:59 14:59 22:59 Other: Weight 75.75 kg Gen. appearance, comfortable not in acute respiratory distress, currently on 3 L of oxygen by nasal cannula Head exam was generally normal. There was no scleral icterus or corneal arcus. Mucous membranes were moist. Neck was supple and without jugular venous distension, thyromegaly, or carotid bruits. Carotids were easily palpable bilaterally. There was no adenopathy. Lungs sounds are showing crackles along the anterior aspect of the right chest extending posteriorly to the right lower lobe. Scattered rhonchi. Scattered extremity wheezes. Cardiac exam revealed the PMI to be normally situated and sized. The rhythm was regular and no extrasystoles were noted during several minutes of auscultation. The first and second heart sounds were normal and physiologic splitting of the second heart sound was noted. There were no murmurs, rubs, clicks, or gallops. Abdomen abdomen Abdominal exam revealed normal bowel sounds. The abdomen was soft, non-tender, and without masses, organomegaly, or appreciable enlargement of the abdominal aorta. Examination of the extremities revealed easily palpable radial, femoral and pedal pulses. There was no cyanosis, clubbing or edema. Examination of the skin revealed no evidence of significant rashes, suspicious appearing nevi or other concerning lesions. Neurologically, the patient is awake and alert and the patient does not have any focal neurological deficit. Cranial nerves are essentially intact. Results - Laboratory Findings CBC and BMP: 03/18/21 09:15 03/18/21 09:15 ABG WBC 7.1 k/uL (3.8-10.6) 03/18/21 09:15 RBC 4.24 m/uL (3.80-5.40) 03/18/21 09:15 Hgb 13.0 gm/dL (11.4-16.0) 03/18/21 09:15 Hct 41.0 % (34.0-46.0) 03/18/21 09:15 MCV 96.5 fL (80.0-100.0) 03/18/21 09:15 MCH 30.7 pg (25.0-35.0) 03/18/21 09:15 MCHC 31.8 g/dL (31.0-37.0) 03/18/21 09:15 RDW 14.3 % (11.5-15.5) 03/18/21 09:15 Plt Count 345 k/uL (150-450) 03/18/21 09:15 MPV 7.3 03/18/21 09:15 Neutrophils % 83 % 03/18/21 09:15 Lymphocytes % 12 % 03/18/21 09:15 Monocytes % 2 % 03/18/21 09:15 Eosinophils % 2 % 03/18/21 09:15 Basophils % 1 % 03/18/21 09:15 Neutrophils # 5.9 k/uL (1.3-7.7) 03/18/21 09:15 Lymphocytes # 0.8 k/uL (1.0-4.8) L 03/18/21 09:15 Monocytes # 0.1 k/uL (0-1.0) 03/18/21 09:15 Eosinophils # 0.1 k/uL (0-0.7) 03/18/21 09:15 Basophils # 0.0 k/uL (0-0.2) 03/18/21 09:15 D-Dimer 0.99 mg/L FEU (<0.60) H 03/18/21 09:15 Sodium 136 mmol/L (137-145) L 03/18/21 09:15 Potassium 3.2 mmol/L (3.5-5.1) L 03/18/21 09:15 Chloride 102 mmol/L (98-107) 03/18/21 09:15 Carbon Dioxide 27 mmol/L (22-30) 03/18/21 09:15 Anion Gap 7 mmol/L 03/18/21 09:15 BUN 12 mg/dL (7-17) 03/18/21 09:15 Creatinine 0.75 mg/dL (0.52-1.04) 03/18/21 09:15 Est GFR (CKD-EPI)AfAm >90 (>60 ml/min/1.73 sqM) 03/18/21 09:15 Est GFR (CKD-EPI)NonAf 88 (>60 ml/min/1.73 sqM) 03/18/21 09:15 Glucose 99 mg/dL (74-99) 03/18/21 09:15 Plasma Lactic Acid Phillip 1.5 mmol/L (0.7-2.0) 03/18/21 09:15 Calcium 8.5 mg/dL (8.4-10.2) 03/18/21 09:15 Total Bilirubin 0.5 mg/dL (0.2-1.3) 03/18/21 09:15 AST 32 U/L (14-36) 03/18/21 09:15 ALT 23 U/L (4-34) 03/18/21 09:15 Alkaline Phosphatase 66 U/L (38-126) 03/18/21 09:15 Lactate Dehydrogenase 1050 U/L (313-618) H 03/18/21 09:15 C-Reactive Protein 17.0 mg/dL (<1.0) H 03/18/21 09:15 Total Protein 6.3 g/dL (6.3-8.2) 03/18/21 09:15 Albumin 3.4 g/dL (3.5-5.0) L 03/18/21 09:15 PT/INR, D-dimer D-Dimer 0.99 mg/L FEU (<0.60) H 03/18/21 09:15 Abnormal lab findings: Abnormal Labs 03/18/21 03/18/21 03/18/21 09:15 09:15 09:15 Lymphocytes # 0.8 L D-Dimer 0.99 H Sodium 136 L Potassium 3.2 L Lactate Dehydrogenase 1050 H C-Reactive Protein 17.0 H Albumin 3.4 L - Diagnostic Findings Chest x-ray: image reviewed CT scan - chest: image reviewed Assessment and Plan Plan: 1 acute Covid 19 related pneumonia. Patient was diagnosed having Covid 19 infection on 03/12/2021. The patient was discharged home on prednisone 50 mg for a total of 5 days. The patient's condition continued to progress. The patient continued to have fever. She is presenting today with worsening shortness of breath and the chest x-ray and the CAT scan of the chest showing both bilateral pulmonary infiltrates and a CTA showing no evidence of pneumonia and there is some vague lateral pulmonary infiltrates consistent with Covid 19 related pneumonia.. This patient is unvaccinated 2 acute hypoxic respiratory failure currently on 3 L by nasal cannula 3 persistent fever secondary to Covid 19 infection 4 elevated inflammatory markers secondary to Covid 19, protest on level is low 5 mediastinal lymphadenopathy that needs to be worked up on outpatient basis, rule out underlying granulomatous infection of the lungs such as sarcoid 6 history of Legionnaires' disease 7 history of right middle lobe pneumonia/right lower lobe pneumonia, recovered from December 2020. 8 COPD with bilateral emphysematous changes as evident on the CAT scan of the chest Plan admit this patient to the hospital Titrate oxygen. His saturation above 90%, currently on 3 L by nasal cannula Decadron 6 mg IV every 12 hours Not candidate for Remdesivir his symptoms started more than 2 weeks ago when he1 Lovenox for DVT prophylaxis, currently on 40 mg subcu on a daily basis Monitor fever pattern monitor inflammatory markers Vitamin C and vitamin D and zinc IV fluids with normal saline at the rate of 130 mL's an hour We'll continue to follow
[2021-03-18] MEDS: CHOLECALCIFEROL 25 MCG (1000 IU) TABLET PO SCH (16:58)
[2021-03-18] MEDS: ZINC SULFATE 220 MG CAP PO SCH (16:58)
[2021-03-18] MEDS: ASCORBIC ACID 500 MG TAB PO SCH (20:27)
[2021-03-18] MEDS: DEXAMETHASONE SOD PHOSPHATE 10 MG/ML 1 ML VIAL IVP SCH (20:28)
[2021-03-19] MEDS: SODIUM CHLORIDE 0.9% 1,000 ML IV SCH ×3 (04:25→20:15)
[2021-03-19 06:06] LABS: Appearance,Urine Clear (Clear); Bilirubin,Urine Negative (Negative); Blood,Urine Negative (Negative); Color,Urine Yellow; Glucose,Urine (UA) Negative (Negative); Ketones,Urine Negative (Negative); Leukocyte Esterase,Urine Negative (Negative); Nitrite,Urine Negative (Negative); Protein,Urine Trace (Negative); Specific Gravity,Urine 1.019 (1.001-1.035); Urobilinogen,Urine <2.0 mg/dL (<2.0)
[2021-03-19] MEDS: ASCORBIC ACID 500 MG TAB PO SCH ×2 (07:55→20:15)
[2021-03-19] MEDS: DEXAMETHASONE SOD PHOSPHATE 10 MG/ML 1 ML VIAL IVP SCH ×2 (07:55→20:15)
[2021-03-19] MEDS: CHOLECALCIFEROL 25 MCG (1000 IU) TABLET PO SCH (07:55)
[2021-03-19] MEDS: ZINC SULFATE 220 MG CAP PO SCH (07:55)
[2021-03-19] MEDS: ENOXAPARIN 40 MG/0.4 ML SYRINGE SQ SCH (07:56)
--- NOTE | 2021-03-19 09:44 | P.CONS ---
History of Present Illness - Reason for Consult Consult date: 03/18/21 covid 19 pneumonia Requesting physician: Lucille Hong - Chief Complaint shortness of breath and diarrhea x days - History of Present Illness History of present illness : Patient is 60-year-old -[place] female who initially presented to [facility] on 03/13/2021 for evaluation of nausea and vomiting some shortness of breath no significant cough patient was diagnosed with a COVID-19 infection and has been treated with the Motrin and prednisone patient presented back to the hospital for evaluation of increasing shortness of breath fever and cough in this patient mentions symptom has been going on for more than 2 weeks now patient on presentation to the hospital did have a fever of 103.3 degrees form height patient was noticed to be hypoxic with O2 sats of 88% on room air patient did have a normal white count with lymphopenia D-dimer was mildly elevated at 0.99 creatinine was normal LDH CRP is elevated urine is negative patient did have a chest x-ray diffuse increased lung markings can be compatible with atypical pneumonia patient did have a CT angiogram of the chest there was negative for PE COPD with moderate emphysema lymphadenopathy groundglass opacities patient was admitted to hospital infectious disease was consulted for further management Review of system: CONSTITUTIONAL: Positive for weakness along with the fever. EYES: No complaint. ENT: As per history of present illness. RESPIRATORY: As per history of present illness. CARDIOVASCULAR: No complaint. GENITOURINARY: No complaint. GASTROINTESTINAL: As per history of present illness. MUSCULOSKELETAL: No complaint. INTEGUMENTARY: No complaint. PSYCHOLOGIC: No complaint. ENDOCRINE: No complaint. NEUROLOGIC: No complaint. Past medical history : Reviewed, documented below Past surgical history : Reviewed, documented below Social history: Reviewed, documented below Medications: Reviewed, as documented below EXAMINATION: Vital sigans= Reviewed and documented below GENERAL DESCRIPTION: Middle-aged female lying in bed, no distress. No tachypnea or accessory muscle of respiration use. HEENT: Shows Pallor , no scleral icterus. Oral mucous membrane is dry. NECK: Trachea central, no thyromegaly. LUNGS: Unlabored breathing. Coarse breath sounds bilaterally. No wheeze or crackle. HEART: S1, S2, regular rate and rhythm. ABDOMEN: Soft, no tenderness , guarding or rigidity EXTREMITIES: No edema of feet. SKIN: No rash, no masses palpable. NEUROLOGICAL: The patient is awake, alert, oriented x3, mood and affect normal. LABS AND RADIOLOGY: Reviewed results see below Assessment : Patient presented to hospital with acute respiratory failure in this patient did have hypoxemia requiring supplemental oxygen and evidence of a multifocal infiltrate on the chest x-ray and CT secondary to COVID-19 pneumonia in this patient not vaccinated for COVID-19 and symptom has been going on for almost 2 weeks and is considered to be not a candidate for remdesivir per [facility] policy and there is no evidence of any secondary bacterial pneumonia Plan: 1-patient to be treated with the current supportive treatment of dexamethasone Lovenox zinc and ascorbic acid 2-droplet isolation and respiratory support 3-no need for systemic liver therapy We will follow on clinical condition and cultures to further adjust medication if needed Thank you for this consultation we will follow the patient along with you Past Medical History Past Medical History: No Reported History Additional Past Medical History / Comment(s): Legionnaires Disease, hospitalization back in December 2020 for right middle lobe pneumonia, recovered History of Any Multi-Drug Resistant Organisms: None Reported Past Surgical History: Tubal Ligation Past Anesthesia/Blood Transfusion Reactions: No Reported Reaction Past Psychological History: No Psychological Hx Reported Smoking Status: Former smoker Past Alcohol Use History: Occasional Past Drug Use History: Marijuana - Past Family History Mother Family Medical History: No Reported History Sister(s) Family Medical History: CVA/TIA Medications and Allergies Home Medications Medication Instructions Recorded Confirmed Type Albuterol Sulfate [Proair Hfa] 2 puff INHALATION RT-QID PRN 03/18/21 03/18/21 History Allergies Allergy/AdvReac Type Severity Reaction Status Date / Time No Known Allergies Allergy Verified 03/18/21 10:43 Physical Exam Vitals: Vital Signs Temp Pulse Pulse Resp BP BP Pulse Ox 03/18/21 15:51 84 20 03/18/21 14:00 99.0 F 84 20 83/55 94 L 03/18/21 12:32 99.5 F 89 20 114/67 97 03/18/21 09:24 20 03/18/21 09:00 103.3 F H 120 H 18 131/75 88 L Intake and Output 03/18/21 03/18/21 03/18/21 06:59 14:59 22:59 Other: Weight 75.75 kg Results CBC & Chem 7: 03/18/21 09:15 03/18/21 09:15 Labs: Abnormal Lab Results - Last 24 Hours (Table) 03/18/21 03/18/21 03/18/21 Range/Units 09:15 09:15 09:15 Lymphocytes # 0.8 L (1.0-4.8) k/uL D-Dimer 0.99 H (<0.60) mg/L FEU Sodium 136 L (137-145) mmol/L Potassium 3.2 L (3.5-5.1) mmol/L Lactate Dehydrogenase 1050 H (313-618) U/L C-Reactive Protein 17.0 H (<1.0) mg/dL Albumin 3.4 L (3.5-5.0) g/dL
--- NOTE | 2021-03-19 14:40 | P.PN ---
Subjective Progress Note Date: 03/19/21 Principal diagnosis: COVID-19 pneumonia 60-year-old female patient, -[place], who presented emergency department on 03/13/2021. The patient at that time was checked positive for COVID 19 infection. Her initial symptoms were consistent with nausea vomiting and emesis. The patient also noted fever for which she was taking Tylenol. She was also having some abdominal pain. No respiratory difficulties. He denied having any chest pain or cough or sputum production. At that time, she had a temperature 11.3. She was hemodynamically stable. Pulse ox was 95% on room air. Her blood work showed normal LFTs, normal electrolytes, white cell count was at 4.7 with hemoglobin of 13. The patient was given hydration. The patient was given prednisone and Zofran and Motrin. She was given a total of 50 mg of prednisone to be taken for the next 5 days and she was discharged home. The patient presented back to the burst department today because of shortness of breath and ongoing fever. She has been taken Tylenol and Motrin. She arrived to the emergency department. Her pulse ox was 88%. She was having no apparent significant respiratory distress. Denies having any chest pain. She was still febrile with a temperature of 103.3. Repeat blood work showed a white cell count of 7.1 with a hemoglobin of 13. Sodium was at 136. BM was 12 with a creatinine of 0.7. LDH was 1050. CRP level was 17. Albumin was at 3.4. Electrolyte were normal. LFTs were normal. The lactic acid level was at 1.5. Chest x-ray was done and the patient was found to have diffuse lung markings compatible with a pneumonia and a CT angiogram also showed no evidence of any pulmonary embolism. She does have underlying COPD/emphysema. Note that the patient was hospitalized a few months back for a right middle lobe pneumonia and that pneumonia that is covered. There was some persistently increased mediastinal and bilateral hilar lymphadenopathy measuring up to 3.4 cm at the right hilum. There was also new subpleural groundglass bilateral pulmonary infiltrates consistent with Covid 19 related pneumonia. There was also a small anterior pericardial effusion noted measuring 7 mm in size. Based on that, the patient was hospitalized. The patient is seen today 03/19/2021 in follow-up on the regular medical floor. She is currently resting comfortably in bed. Awake and alert in no acute distress. Current and maintaining O2 saturations in the low 90s on 4 L/m per na malina cannula. Afebrile. Hemodynamically stable. No new labs today. She is continued on vitamin supplements, Decadron, Lovenox. Objective - Vital Signs Vital signs: Vital Signs Temp 99.0 F 03/19/21 14:00 Pulse 79 03/19/21 14:00 Resp 17 03/19/21 14:00 BP 109/68 03/19/21 14:00 Pulse Ox 94 L 03/19/21 14:00 Intake & Output 03/18/21 03/19/21 03/19/21 18:59 06:59 18:59 Weight 75.75 kg Other: # Voids 1 2 - Exam Gen. appearance, this is a pleasant 60-year-old female patient, comfortable not in acute respiratory distress, currently on 3 L of oxygen by nasal cannula Head exam was generally normal. There was no scleral icterus or corneal arcus. Mucous membranes were moist. Neck was supple and without jugular venous distension, thyromegaly, or carotid bruits. Carotids were easily palpable bilaterally. There was no adenopathy. Lungs sounds are showing crackles bibasilar. Scattered rhonchi. Scattered expiratory wheezes. Cardiac exam revealed the PMI to be normally situated and sized. The rhythm was regular and no extrasystoles were noted during several minutes of auscultation. The first and second heart sounds were normal and physiologic splitting of the second heart sound was noted. There were no murmurs, rubs, clicks, or gallops. Abdomen abdomen Abdominal exam revealed normal bowel sounds. The abdomen was soft, non-tender, and without masses, organomegaly, or appreciable enlargement of the abdominal aorta. Examination of the extremities revealed easily palpable radial, femoral and pedal pulses. There was no cyanosis, clubbing or edema. Examination of the skin revealed no evidence of significant rashes, suspicious appearing nevi or other concerning lesions. Neurologically, the patient is awake and alert and the patient does not have any focal neurological deficit. Cranial nerves are essentially intact. - Labs CBC & Chem 7: 03/18/21 09:15 03/18/21 09:15 Labs: Abnormal Lab Results - Last 24 Hours (Table) 03/19/21 Range/Units 06:00 Urine Protein Trace H (Negative) Assessment and Plan Assessment: 1 acute Covid 19 related pneumonia. Patient was diagnosed having Covid 19 infection on 03/12/2021. The patient was discharged home on prednisone 50 mg for a total of 5 days. The patient's condition continued to progress. The patient continued to have fever. She is presenting back with worsening geoffrey rtness of breath and the chest x-ray and the CAT scan of the chest showing both bilateral pulmonary infiltrates and a CTA showing evidence of pneumonia and there is some vague lateral pulmonary infiltrates consistent with Covid 19 related pneumonia.. This patient is unvaccinated 2 acute hypoxic respiratory failure currently on 3 L by nasal cannula 3 persistent fever secondary to Covid 19 infection 4 elevated inflammatory markers secondary to Covid 19, protest on level is low 5 mediastinal lymphadenopathy that needs to be worked up on outpatient basis, rule out underlying granulomatous infection of the lungs such as sarcoid 6 history of Legionnaires' disease 7 history of right middle lobe pneumonia/right lower lobe pneumonia, recovered from December 2020. 8 COPD with bilateral emphysematous changes as evident on the CAT scan of the chest Plan The patient was seen and evaluated Stable and on 4 L nasal cannula Continue Lovenox, Decadron, vitamin supplements Add incentive spirometry Follow-up chest x-ray and labs in the a.m. We will continue to follow I, the cosigning physician, performed a history & physical examination of the patient. Lungs sounds bibasilar crackles, few scattered rhonchi, end expiratory wheeze. Maintaining good O2 saturations in the 90s on 4 L/m per nasal cannula. I discussed the assessment and plan of care with my nurse practitioner, Elena Nye. I attest to the above note as dictated by her.
--- NOTE | 2021-03-19 17:00 | PN ---
PROGRESS NOTE DATE OF SERVICE: 03/19/2021. REASON FOR FOLLOWUP: COVID-19 pneumonia INTERVAL HISTORY: The patient is afebrile. The patient is breathing slightly comfortably. The patient did have a congested cough, not bringing up any sputum. No further nausea. No vomiting. No abdominal pain, no diarrhea. PHYSICAL EXAMINATION: Blood pressure 109/68 with a pulse of 79, temperature of 99. She is 94% on 4 L nasal cannula. General description is a middle-aged female lying in bed in no distress. Respiratory system: Unlabored breathing, decreased intensity of the breath sounds, no wheeze. Heart S1, S2. Regular rate and rhythm. Abdomen soft, no tenderness. LABS: Hemoglobin 13, white count 7.1, creatinine 0.25. Urine is negative. DIAGNOSTIC IMPRESSION AND PLAN: Patient admitted to the hospital with acute COVID-19 pneumonia, minimal clinical improvement. Patient to continue with current supportive treatment of dexamethasone, Lovenox, zinc and ascorbic acid and respiratory support and monitor clinical course closely. MMODL / IJN: [id number] /
[2021-03-19] MEDS ORDERED: Potassium Replacement Protocol 1 EACH MISC MISCELLANE PRN (19:17)
[2021-03-19] MEDS ORDERED: Magnesium Replacement Protocol 1 EACH MISC MISCELLANE PRN (19:19)
[2021-03-19] MEDS: POTASSIUM CHLORIDE ER 20 MEQ TAB.ER PO SCH (20:15)
--- NOTE | 2021-03-19 20:30 | PN ---
PROGRESS NOTE DATE OF SERVICE: 03/19/2021 This 60-year-old woman who was admitted with shortness of breath, acute COVID-19 pneumonia, also has elevated D-dimer at this time. The patient had a chest CT which was reviewed personally by me. It showed no evidence of pulmonary embolism; some mediastinal lymphadenopathy and multiple ground-glass opacities were noted. Multiple consultants are following the patient closely. Past medical history reviewed. REVIEW OF SYSTEMS: CARDIOVASCULAR SYSTEM: No angina. RESPIRATION: As mentioned earlier. GI: As mentioned earlier. : No dysuria. NERVOUS SYSTEM: No numbness, weakness. CURRENT MEDICATIONS: Reviewed. They include Tylenol, vitamin C, vitamin D3, dexamethasone, Lovenox. Doses are reviewed. PHYSICAL EXAMINATION: Patient alert and oriented x_. Pulse 79, blood pressure 109/60, respirations 17, pulse ox 94% on 4 L. HEENT: Conjunctivae normal. NECK: No jugular venous distention. CARDIOVASCULAR: S1, S2 muffled. RESPIRATION: Breath sounds diminished at the bases. A few scattered rhonchi. ABDOMEN: Soft, nontender. NERVOUS SYSTEM: No focal deficit. LAB STUDIES: CBC within normal limits. D-dimer is 0.9. Sodium , potassium 3.2. ASSESSMENT: 1. Acute COVID-19 infection with acute COVID-19 bilateral interstitial pneumonia with acute hypoxic respiratory failure. 2. Mediastinal lymphadenopathy. 3. Rule out sarcoidosis. 4. Elevated D-dimer without any evidence of pulmonary embolism. 5. Hyponatremia. 6. Hypokalemia. 7. Lymphopenia, possibly secondary to COVID-19. 8. Elevated inflammatory markers of COVID-19. 9. History of previous pneumonia, possibly Legionaire's, per patient. 10.History of nicotine dependence. 11.History of THC. 12.FULL CODE. RECOMMENDATIONS AND DISCUSSION: I recommend to continue current medications, continue with the monitoring, symptomatic treatment. Closely follow with Infectious Disease as well as Pulmonary. Guarded prognosis. Further recommendations to follow. See orders for further details. Continue steroids. Monitor blood sugars closely. Ensure oxygenation. CT of the chest was reviewed by me. Recommend close followup with a primary physician. The patient apparently does not have a primary physician at this point. I would order serum amylase level as well. MMODL / IJN: [id number] / [facility]
[2021-03-20] MEDS: SODIUM CHLORIDE 0.9% 1,000 ML IV SCH ×3 (03:06→16:43)
[2021-03-20 07:51] LABS: ALT 27 U/L (4-34); AST 35 U/L (14-36); African American GFR (CKD) >90 (>60 ml/min/1.73 sqM); Albumin 2.7 g/dL (3.5-5.0); Alkaline Phosphatase 62 U/L (38-126); Anion Gap 4 mmol/L; Blood Urea Nitrogen 9 mg/dL (7-17); Calcium 8.1 mg/dL (8.4-10.2); Carbon Dioxide 23 mmol/L (22-30); Chloride 110 mmol/L (98-107); Globulin 2.8 g/dL; Glucose 123 mg/dL (74-99); LDH 1099 U/L (313-618); Non-African American GFR(CKD) >90 (>60 ml/min/1.73 sqM); Potassium 4.2 mmol/L (3.5-5.1); Sodium 137 mmol/L (137-145); Total Bilirubin 0.4 mg/dL (0.2-1.3); Total Protein 5.5 g/dL (6.3-8.2)
[2021-03-20 08:08] LABS: C Reactive Protein 14.9 mg/dL (<1.0)
[2021-03-20] MEDS: DEXAMETHASONE SOD PHOSPHATE 10 MG/ML 1 ML VIAL IVP SCH ×2 (08:20→20:20)
[2021-03-20] MEDS: ASCORBIC ACID 500 MG TAB PO SCH ×2 (08:20→20:20)
[2021-03-20] MEDS: ZINC SULFATE 220 MG CAP PO SCH (08:20)
[2021-03-20] MEDS: ENOXAPARIN 40 MG/0.4 ML SYRINGE SQ SCH (08:20)
[2021-03-20] MEDS: CHOLECALCIFEROL 25 MCG (1000 IU) TABLET PO SCH (08:20)
[2021-03-20 11:59] LABS: HCT 30.5 % (37.2-46.3); HGB 11.2 g/dL (12.0-15.0); MCH 36.2 pg (27.0-32.0); MCHC 36.7 g/dL (32.0-37.0); MCV 98.7 fL (80.0-97.0); Mean Platelet Volume 9.5 fL (9.5-12.2); Platelet Count 362 X 10*3/uL (140-440); RBC 3.09 X 10*6/uL (4.10-5.20); RDW 15.4 % (11.5-14.5); WBC 6.38 X 10*3/uL (4.50-10.00)
[2021-03-20 12:36] LABS: Basophils # (A) 0.01 X 10*3/uL (0.00-0.10); Basophils % (A) 0.2 %; Eosinophils # (A) 0 X 10*3/uL (0.04-0.35); Eosinophils % (A) 0 %; Lymphocytes # (A) 0.75 X 10*3/uL (0.90-5.00); Lymphocytes % (A) 11.8 %; Monocytes # (A) 0.12 X 10*3/uL (0.20-1.00); Monocytes % (A) 1.9 %; Neutrophils # (A) 5.43 X 10*3/uL (1.80-7.70)
--- NOTE | 2021-03-20 18:52 | PN ---
PROGRESS NOTE DATE OF SERVICE: 03/20/2021 This 60-year-old woman who was admitted with acute COVID-19 infection with acute COVID- 19 bilateral interstitial pneumonia with acute hypoxic respiratory failure is being closely monitored. The patient also has some mediastinal lymphadenopathy. Dr. Lynne and Dr. Dee are following the patient closely. The patient had acute hypoxic respiratory failure as well. Inflammatory markers are also elevated at this time. Mediastinal lymph node workup is deemed outpatient at this time. The D- dimer is 0.80. Inflammatory markers of COVID-19 are also elevated. Past medical history reviewed. REVIEW OF SYSTEMS: CARDIOVASCULAR SYSTEM: No angina. RESPIRATION: As mentioned earlier. GI: As mentioned earlier. : No dysuria. NERVOUS SYSTEM: No numbness, weakness. CURRENT MEDICATIONS: Reviewed. They include Tylenol, vitamin C, vitamin D3, Decadron, Lovenox, Motrin. Doses and other medications are reviewed. PHYSICAL EXAMINATION: The patient is alert, oriented x3. Pulse 83, blood pressure 119/78, respiration 18, temperature 99.1, pulse ox 94% on 4 L. HEENT: Conjunctivae normal. NECK: No jugular venous distention. CARDIOVASCULAR: S1, S2 muffled. RESPIRATION: Breath sounds diminished at the bases. A few scattered rhonchi and crackles. ABDOMEN: Soft, nontender. LEGS: No edema. No swelling. NERVOUS SYSTEM: No focal deficit. LAB STUDIES: WBC 6.8, hemoglobin 10.2. D-dimer is 0.80. ASSESSMENT: 1. Acute COVID-19 infection with acute bilateral interstitial pneumonia with acute hypoxic respiratory failure. 2. Mediastinal lymphadenopathy for evaluation. Rule out sarcoidosis. 3. Elevated D-dimer without any evidence of acute pulmonary embolism. 4. Hyponatremia. 5. Hypokalemia. 6. Lymphopenia, possibly secondary to COVID-19. 7. Elevated procalcitonin. 8. Elevated inflammatory markers of COVID-19. 9. History of previous pneumonia, possibly Legionnaires, per patient. 10.History of nicotine dependence. 11.History of THC. 12.FULL CODE. RECOMMENDATIONS AND DISCUSSION: I recommend to continue current medications, continue with the monitoring, symptomatic treatment. We will continue to monitor. Serum level has been sought. Outpatient followup for the mediastinal lymphadenopathy. At this time we will continue to monitor. The patient is receiving dexamethasone and the rest of the medications. Repeat labs will be ordered. Guarded prognosis because of multiple complex medical issues. Further recommendations to follow. MMODL / IJN: [id number] / [facility]
--- NOTE | 2021-03-20 20:43 | PN ---
PROGRESS NOTE DATE OF SERVICE: 03/20/2021 REASON FOR FOLLOWUP: COVID-19 pneumonia. INTERVAL HISTORY: The patient is afebrile. The patient is breathing more comfortably. The patient denies having any chest pain. No worsening cough or sputum production. No abdominal pain. No further diarrhea. PHYSICAL EXAMINATION: Blood pressure is 120/75 with a pulse of 73, temperature 98.1. She is 95% on 4 L nasal cannula. General description is a middle-aged female lying in bed in no distress. Respiratory system: Unlabored breathing, decreased intensity of breath sounds. No wheeze. Heart S1, S2. Regular rate and rhythm. Abdomen soft, no tenderness. LABS: Hemoglobin is 11.1, white count 6.38, creatinine 0.61. DIAGNOSTIC IMPRESSION AND PLAN: Patient with acute COVID-19 pneumonia, mild illness, slowly clinically improving. Patient receiving dexamethasone, Lovenox, zinc and ascorbic acid along with respiratory support. Monitor clinical course closely. MALIAL / LILLIANAN: [id number] /
[2021-03-21 05:02] LABS: Appearance,Urine Clear (Clear); Bilirubin,Urine Negative (Negative); Blood,Urine Negative (Negative); Color,Urine Light Yellow; Glucose,Urine (UA) Negative (Negative); Ketones,Urine Negative (Negative); Leukocyte Esterase,Urine Negative (Negative); Nitrite,Urine Negative (Negative); PH, Urine 6.5 (5.0-8.0); Protein,Urine Negative (Negative); Specific Gravity,Urine 1.008 (1.001-1.035); Urobilinogen,Urine <2.0 mg/dL (<2.0)
[2021-03-21] MEDS: SODIUM CHLORIDE 0.9% 1,000 ML IV SCH (05:33)
[2021-03-21] MEDS: ENOXAPARIN 40 MG/0.4 ML SYRINGE SQ SCH (08:29)
[2021-03-21] MEDS: DEXAMETHASONE SOD PHOSPHATE 10 MG/ML 1 ML VIAL IVP SCH (08:29)
[2021-03-21] MEDS: ZINC SULFATE 220 MG CAP PO SCH (08:30)
[2021-03-21] MEDS: CHOLECALCIFEROL 25 MCG (1000 IU) TABLET PO SCH (08:30)
[2021-03-21] MEDS: ASCORBIC ACID 500 MG TAB PO SCH (08:30)
[2021-03-21 10:26] VITALS: BP 133/83; PULSE 77; RESP 17; TEMP 97.6
[2021-03-21 11:15] LABS: African American GFR (CKD) 110.7 (60.0-200.0); Albumin 3.3 g/dL (3.8-4.9); Albumin/Globulin Ratio 1.32 (1.60-3.17); Anion Gap 12.8 mmol/L (10.00-18.00); Blood Urea Nitrogen 8.4 mg/dL (9.0-27.0); Calcium 8.4 mg/dL (8.7-10.3); Carbon Dioxide 19.2 mmol/L (20.0-27.5); Globulin 2.5 g/dL (1.6-3.3); Non-African American GFR(CKD) 95.5 (60.0-200.0); Potassium 4.1 mmol/L (3.5-5.5); Total Bilirubin 0.3 mg/dL (0.30-1.20); Total Protein 5.8 g/dL (6.2-8.2)
[2021-03-21] MEDS ORDERED: MULTIVITAMINS, THERA 1 EACH TAB PO SCH (12:00)
[2021-03-21] MEDS ORDERED: THIAMINE 100 MG TAB PO SCH (12:00)
[2021-03-21] MEDS ORDERED: FOLIC ACID 1 MG TAB PO SCH (12:00)
[2021-03-21 14:09] LABS: Basophils # (A) 0.05 X 10*3/uL (0.00-0.10); Basophils % (A) 0.8 %; Eosinophils # (A) 0 X 10*3/uL (0.04-0.35); Eosinophils % (A) 0 %; HCT 37.7 % (37.2-46.3); HGB 12.3 g/dL (12.0-15.0); Lymphocytes # (A) 1.31 X 10*3/uL (0.90-5.00); Lymphocytes % (A) 19.8 %; MCH 32.2 pg (27.0-32.0); MCHC 32.6 g/dL (32.0-37.0); MCV 98.7 fL (80.0-97.0); Mean Platelet Volume 9.3 fL (9.5-12.2); Monocytes # (A) 0.24 X 10*3/uL (0.20-1.00); Monocytes % (A) 3.6 %; Neutrophils # (A) 4.87 X 10*3/uL (1.80-7.70); Neutrophils % (A) 73.7 %; Platelet Count 467 X 10*3/uL (140-440); RBC 3.82 X 10*6/uL (4.10-5.20); RDW 15.5 % (11.5-14.5); WBC 6.61 X 10*3/uL (4.50-10.00)
--- NOTE | 2021-03-21 14:19 | P.PN ---
Progress Note - Text Progress Note Date: 03/21/21 REASON FOR FOLLOWUP: COVID-19 pneumonia. INTERVAL HISTORY: The patient remains to be afebrile. The patient is breathing comfortably. The patient denies chest pain. cough has decreased in intensity, no sputum production. No abdominal pain. No further diarrhea. PHYSICAL EXAMINATION: Blood pressure is 125/70 with a pulse of 70, temperature 98.1. She is 95% on 4 L nasal cannula. General description is a middle-aged female lying in bed in no distress. Respiratory system: Unlabored breathing, decreased intensity of breath sounds. No wheeze. Heart S1, S2. Regular rate and rhythm. Abdomen soft, no tenderness. LABS: reviewed DIAGNOSTIC IMPRESSION AND PLAN: Patient with acute COVID-19 pneumonia, from which pt is slowly clinically improving. Patient to continue with dexamethasone, Lovenox, zinc and ascorbic acid along with respiratory support. Monitor clinical course closely.
--- NOTE | 2021-03-21 20:23 | DS ---
DISCHARGE SUMMARY FINAL DIAGNOSES: 1. Acute COVID-19 infection with acute bilateral interstitial pneumonia, early, with acute hypoxic respiratory failure. 2. Mediastinal lymphadenopathy for evaluation. Rule out sarcoidosis. 3. Elevated D-dimer without any evidence of acute pulmonary embolism. 4. Hyponatremia. 5. Hypokalemia. 6. Lymphopenia, possibly secondary to COVID-19. 7. Elevated procalcitonin. 8. Elevated inflammatory markers of COVID-19. 9. History of previous pneumonia, possibly Legionnaires, per patient. Records not available. 10.History of nicotine dependence. 11.History of THC. 12.FULL CODE. DISCHARGE DISPOSITION: The patient will be discharged in stable condition with guarded prognosis. Total time taken 35 minutes. HISTORY OF PRESENT ILLNESS: This 60-year-old woman with a past medical history of multiple medical problems was admitted with features of acute COVID-19 infection, acute COVID bilateral interstitial pneumonia. The patient was treated symptomatically. Infectious Disease and Pulmonary saw the patient. On exam vitals are stable. CARDIOVASCULAR: S1, S2 muffled. ABDOMEN: Soft. NERVOUS SYSTEM: No focal deficit. The patient will be discharged in stable condition with guarded prognosis. The procalcitonin is elevated at 0.11. Cultures are negative. DISCHARGE ADVICE AND MEDICATIONS: 1. Discharge diet is cardiac diet. 2. Activity limited until followup. 3. Follow up with Dr. Shaver in 1-2 days. 4. Follow up with Dr. Cazares. 5. Follow up with Dr. Dee as recommended. 6. Albuterol p.r.n. 7. Dexamethasone mg p.o. daily for 6 more days. 8. Folic acid 1 mg p.o. daily. 9. Motrin 400 mg q.6 p.r.n. 10.Multivitamins 1 p.o. daily. 11.Orazinc 220 mg p.o. daily for 2 weeks. 12.Tylenol p.r.n. 13.Thiamine 100 mg p.o. daily. 14.Vitamin C 500 mg p.o. daily. 15.Vitamin D3 25 mcg p.o. daily. 16.CBC, BMP with Dr. Shaver. Once again, the patient will be discharged in stable condition with guarded prognosis. MMODL / IJN: [id number] /
== END 2021-03-21 17:28 | disposition home or self-care (01) | DRG 177 ==
LOC: EC 08:59 → 4SSUR 11:51
PROVIDERS: ADMIT Hospitalist; ATTEND Hospitalist
PROC: 3E0333Z Introduction of Anti-inflammatory into Peripheral Vein, Percutaneous Approach (ICD-10-PCS; principal; 2021-03-18)
DX: U07.1 COVID-19 (principal); J12.82 Pneumonia due to coronavirus disease 2019; J96.01 Acute respiratory failure with hypoxia; E87.1 Hypo-osmolality and hyponatremia; I31.3 Pericardial effusion (noninflammatory); D72.810 Lymphocytopenia; E87.6 Hypokalemia; F17.200 Nicotine dependence, unspecified, uncomplicated; J43.9 Emphysema, unspecified; Z82.3 Family history of stroke; Z87.01 Personal history of pneumonia (recurrent)
CPT/HCPCS: 36415; 71046; 71275; 80053; 81003; 82164; 83605; 83615; 83735; 84132; 84145; 85025; 85379; 86140; 93005; 94640; 99285

== ENCOUNTER 2022-02-09 15:30 | Emergency (ER) | payer OTHER ==
[2022-02-09 15:39] VITALS: RESP 16
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
[2022-02-09 16:53] LABS: Basophils % (A) 1 %; Eosinophils # (A) 0.1 k/uL (0-0.7); Eosinophils % (A) 2 %; HCT 46.4 % (34.0-46.0); HGB 14.7 gm/dL (11.4-16.0); Lymphocytes # (A) 2.3 k/uL (1.0-4.8); Lymphocytes % (A) 39 %; MCH 30.4 pg (25.0-35.0); MCHC 31.7 g/dL (31.0-37.0); MCV 95.9 fL (80.0-100.0); Mean Platelet Volume 7.9; Monocytes # (A) 0.3 k/uL (0-1.0); Monocytes % (A) 6 %; Neutrophils # (A) 3.1 k/uL (1.3-7.7); Neutrophils % (A) 51 %; Platelet Count 206 k/uL (150-450); RBC 4.84 m/uL (3.80-5.40); RDW 13.6 % (11.5-15.5)
--- NOTE | 2022-02-09 16:53 | CT ---
EXAMINATION TYPE: CT brain wo con CT DLP: 1094.4 mGycm, Automated exposure control for dose reduction was used. DATE OF EXAM: 02/09/2022 4:48 PM COMPARISON: None. CLINICAL INDICATION:Female, 61 years old with history of seizure, weakness, confusion TECHNIQUE: Brain: Axial CT images of the brain were obtained with coronal and sagittal reformats created and rev iewed. Contrast used: None. Oral contrast used: None. FINDINGS: Brain: Extra-axial spaces: No abnormal extra-axial fluid collections. Ventricular system: Within normal limits Cerebral parenchyma: No acute intraparenchymal hemorrhage or mass effect. The sanchez-white junction is well differentiated. Cerebellum: Unremarkable. Mass effect: No evidence of midline shift. Intracranial vasculature: Atherosclerotic calcifications of the intracranial vessels. Soft tissues: Normal. Calvarium/osseous structures: No depressed skull fracture. Paranasal sinuses and mastoid air cells: Mild scattered paranasal sinus disease. Visualized orbits: Orbital contents are intact. IMPRESSION: No acute intracranial process.
[2022-02-09 17:04] LABS: ALT 14 U/L (4-34); AST 25 U/L (14-36); African American GFR (CKD) >90 (>60 ml/min/1.73 sqM); Albumin 3.2 g/dL (3.5-5.0); Alkaline Phosphatase 30 U/L (38-126); Anion Gap 6 mmol/L; Blood Urea Nitrogen 7 mg/dL (7-17); Calcium 7.7 mg/dL (8.4-10.2); Carbon Dioxide 24 mmol/L (22-30); Chloride 106 mmol/L (98-107); Glucose 100 mg/dL (74-99); Non-African American GFR(CKD) 87 (>60 ml/min/1.73 sqM); Sodium 136 mmol/L (137-145); Total Bilirubin 0.5 mg/dL (0.2-1.3); Total Protein 5.4 g/dL (6.3-8.2)
[2022-02-09 17:20] LABS: Potassium 3.8 mmol/L (3.5-5.1)
[2022-02-09 18:44] LABS: Amphetamine Screen,Urine Not Detected (NotDetected); Barbiturate Screen,Urine Not Detected (NotDetected); Benzodiazepines Screen,Urine Not Detected (NotDetected); Cocaine Screen,Urine Not Detected (NotDetected); Methadone Screen, Urine Not Detected (NotDetected); Opiate Screen,Urine Not Detected (NotDetected); Oxycodone Screen, Urine Not Detected (NotDetected); Phencyclidine Screen,Urine Not Detected (NotDetected); Tricyclic Antidepressant,Urine Not Detected (NotDetected); Urn Cannabinoid Scrn Detected (NotDetected)
[2022-02-09 19:44] VITALS: BP 128/78; PULSE 78; TEMP 98
== END 2022-02-09 19:40 | disposition home or self-care (01) ==
LOC: EC 15:30
DX: R56.9 Unspecified convulsions (principal); Z87.891 Personal history of nicotine dependence; F12.90 Cannabis use, unspecified, uncomplicated
CPT/HCPCS: 36415; 70450; 80053; 80306; 83605; 84484; 85025; 93005; 99285

== ENCOUNTER → 2022-02-17 | Outpatient (CLI) | payer OTHER ==
--- NOTE | 2022-02-17 21:28 | MR ---
EXAMINATION TYPE: MR brain wo/w con DATE OF EXAM: 02/17/2022 9:19 PM CLINICAL INDICATION:Female, 61 years old with history of R55, R56.9, H53.8, R51.9, R47.81; COMPARISON: CT brain 02/09/2022 TECHNIQUE: Multi planar, multi sequence imaging was performed through the brain including: T1, T2, In version recovery, susceptibility weighted imaging and gradient echo imaging and Diffusion weighted im aging. The patient was then given intravenous contrast and multi planar, T1 fat-saturation images wer e obtained. IV Contrast: 7 cc Gadavist FINDINGS: The sanchez-white junctions, ventricular system, basal cisterns appear unremarkable. Diffusion-weighted imaging shows no evidence of restricted diffusion to suggest acute/subacute infarct. Intracranial art erial flow voids are maintained. Midline structures show no abnormalityScattered foci of high T2 sign al intensity are seen within the periventricular white matter. The susceptibility weighted images do not reveal any evidence for micro-hemorrhage. After administration of gadolinium, no abnormal enhance ment is seen. The bone marrow signal is within normal limits. Paranasal sinuses and mastoid air cells: Mild scattered paranasal sinus disease. Visualized orbits: Orbital contents are intact. IMPRESSION: 1. No evidence of intracranial mass, acute/subacute infarct, or abnormal enhancement. 2. Nonspecific white matter changes, likely related to small vessel ischemic disease
== END | disposition home or self-care (01) ==
LOC: RADMRIMAIN 20:45
PROVIDERS: ATTEND Physician Assistant
DX: R90.82 White matter disease, unspecified (principal); R55 Syncope and collapse; R56.9 Unspecified convulsions; H53.8 Other visual disturbances; R51.9 Headache, unspecified; R47.81 Slurred speech
CPT/HCPCS: 70553; A9585

== ENCOUNTER → 2022-02-22 | Outpatient (CLI) | payer OTHER ==
--- NOTE | 2022-02-22 22:57 | EEG ---
ELECTROENCEPHALOGRAM REPORT CLINICAL HISTORY: This is a 61-year-old woman with reported episode of staring off, nonresponsive and body jerks. The video EEG is obtained to evaluate for seizure and epileptiform activity. RELEVANT MEDICATION: The patient is not on any antiepileptic drug that is reported in her record. DESCRIPTION: Wakefulness is only obtained. During awake state, the background consists of a very low voltage of 11 hertz activity. There is no physiological stage 2 sleep architecture appreciated. There is no focal slowing. Interictal and ictal is none. ACTIVATION PROCEDURE: Photic stimulation did not evoke a posterior driving response. There is no abnormality during the photic stimulation. Hyperventilation is not performed. CLINICAL INTERPRETATION: This is a normal routine EEG. There is no focal slowing, epileptiform discharge, or seizure on the EEG. A normal routine EEG does not rule out underlying epilepsy. If the patient continues to have further episodes, recommend a prolonged EEG or sleep- deprived EEG. Clinical correlation is recommended. TASNEEM / ROSA ISELA: [id number] / [id number]
== END ==
LOC: NEUROMAIN 07:48
PROVIDERS: ATTEND Family Medicine
DX: R56.9 Unspecified convulsions (principal); R55 Syncope and collapse; F17.200 Nicotine dependence, unspecified, uncomplicated
CPT/HCPCS: 95816

== ENCOUNTER 2022-05-30 08:04 | Emergency (ER) | payer OTHER ==
[2022-05-30 08:13] VITALS: RESP 18; TEMP 98
--- NOTE | 2022-05-30 08:35 | ED ---
General Adult HPI - General Chief complaint: Allergic Reaction Stated complaint: swelling in face Time Seen by Provider: 05/30/22 08:17 Source: patient Mode of arrival: ambulatory Limitations: no limitations - History of Present Illness Initial comments: Dictation was produced using [employer] dictation software. please excuse any grammatical, word or spelling errors. Chief Complaint: 61-year-old female with 2 days of facial swelling in vision changes History of Present Illness: Is 61-year-old female she has past medical history of hypertension. She does take lisinopril last 2 days she is complained of mid facial swelling. She denies any pain. No itching. Patient this morning started to have bouts of intermittent black specks in her vision. She states that it'll last for 10 minutes at a time. She denies any headache. Denies any numbness and no paresthesias to the arms or legs. States that the specks are in her whole visual fisher states that she seems like it's pattern with her pulse. Denies any history of cardiac disease. She does not have any visual symptoms at this time. Denies any history of chronic ophthalmological diseases. The ROS documented in this emergency department record has been reviewed and c onfirmed by me. Those systems with pertinent positive or negative responses have been documented in the HPI. All other systems are other negative and/or noncontributory. PHYSICAL EXAM: General Impression: Alert and oriented x3, not in acute distress HEENT: Normocephalic atraumatic, extra-ocular movements intact, pupils equal and reactive to light bilaterally, mucous membranes moist, mild mid facial swelling without any involvement of the throat, lips, uvula or tongue Cardiovascular: Heart regular rate and rhythm Chest: Able to complete full sentences, no retractions, no tachypnea Abdomen: abdomen soft, non-tender, non-distended, no organomegaly Musculoskeletal: Pulses present and equal in all extremities, no peripheral edema Motor: no focal deficits noted Neurological: CN II-XII grossly intact, no focal motor or sensory deficits noted Skin: Intact with no visualized rashes Psych: Normal affect and mood ED course: 31-year-old female takes GRETCHEN inhibitor presents to the ER for 2 days of facial swelling. Not associated with headache. She does have vague vision changes that don't appear to be consistent with retinal issue or ocular CVA. Vital signs upon arrival are within acceptable limits. Nursing notes and chart review was performed Was pt. sent in by a medical professional or institution ([facility], [facility], urgent care, hospital, or fci...) When possible be specific @ -No Did you speak to anyone other than the patient for history (EMS, parent, family, police, friend...)? What history was obtained from this source @ -No Did you review nursing and triage notes (agree or disagree)? Why? @ -I reviewed and agree with nursing and triage notes Were old charts reviewed (outside hosp., previous admission, EMS record, old EKG, old radiological studies, urgent care reports/EKG's, fci records)? Report findings @ -No old charts were reviewed Differential Diagnosis (chest pain, altered mental status, abdominal pain women, abdominal pain men, vaginal bleeding, musculoskeletal, weakness, fever, dyspnea, syncope, headache, dizziness, GI bleed, back pain, seizure, CVA, palpatations, mental health)? @ -Cavernous sinus thrombosis, facial infection, sinusitis, intracranial mass EKG interpreted by me (3pts min.). @ -None done X-rays interpreted by me (1pt min.). @ -None done CT interpreted by me (1pt min.). @ -Nonacute U/S interpreted by me (1pt. min.). @ -None done What testing was considered but not performed or refused? (CT, X-rays, U/S, labs)? Why? @ -None What meds were considered but not given or refused? Why? @ -None Did you discuss the management of the patient with other professionals (professionals i.e. [facility], [facility], lab, RT, psych nurse, social services aide, beef cattle grazier, teacher, training and development officer, window caser)? Give summary @ -No Was smoking cessation discussed for >3mins.? @ -No Was critical care preformed (if so, how long)? @ -No Were there social determinants of health that impacted care today? How? (Homelessness, low income, unemployed, alcoholism, drug addiction, transportation, low edu. Level, literacy, decrease access to med. care, care home, rehab)? @ -No Was there de-escalation of care discussed even if they declined (Discuss DNR or withdrawal of care, Hospice)? DNR status @ -No What co-morbidities impacted this encounter? (DM, HTN, Smoking, COPD, CAD, Cancer, CVA, ARF, Chemo, Hep., AIDS, mental health diagnosis, sleep apnea, morbid obesity)? @ -None Was patient admitted / discharged? Hospital course, mention meds given and route, prescriptions, significant lab abnormalities, going to OR and other pertinent info. @ -61-year-old female presents emergency Department with facial swelling. She does also have secondary complaint of vague vision changes that presents intermittently. Laboratory evaluation unremarkable. Computed tomography scan of the brain is negative. Patient monitored in the emergency department for approximately 3 hours. Reevaluated at bedside 11:02 AM vomited several condition. Unclear what is causing patient's bouts of intermittent vision changes. Does not clinically support the diagnosis of retinal issue. Intra cranial mass was essentially ruled out with negative computed tomography scan. She does not have mid facial pain. Disposition options were discussed with patient. She is agreeable for discharge. She was told by primary care doctor to follow-up in the office on her way home today. Undiagnosed new problem with uncertain prognosis? @ -No Drug Therapy requiring intensive monitoring for toxicity (Heparin, Nitro, Insulin, Cardizem)? @ -No Were any procedures done? @ -No Diagnosis/symptom? Acute, or Chronic, or Acute on Chronic? Uncomplicated (without systemic symptoms) or Complicated (systemic symptoms)? @ -1. Angioedema, 2. Intermittent vision changes Side effects of treatment? @ -No Exacerbation, Progression, or Severe Exacerbation? @ -No Poses a threat to life or bodily function? How? (Chest pain, USA, CT, pneumonia, PE, COPD, DKA, ARF, appy, cholecystitis, CVA, Diverticulitis, Homicidal, Suicidal, threat to staff... and all critical care pts) @ -Yes - Related Data Home Medications Medication Instructions Recorded Confirmed Albuterol Sulfate [Ventolin HFA] 2 puff INHALATION RT-Q4H 05/30/22 05/30/22 Levothyroxine Sodium [Synthroid] 75 mcg PO DAILY 05/30/22 05/30/22 Vitamin D3 1250mcg (57669 Iu) 1,250 mcg PO MO 05/30/22 05/30/22 lisinopriL [Zestril] 20 mg PO DAILY 05/30/22 05/30/22 Allergies Allergy/AdvReac Type Severity Reaction Status Date / Time No Known Allergies Allergy Verified 05/30/22 09:41 Review of Systems ROS Statement: Those systems with pertinent positive or pertinent negative responses have been documented in the HPI. ROS Other: All systems not noted in ROS Statement are negative. Past Medical History Past Medical History: No Reported History Additional Past Medical History / Comment(s): Legionnaires Disease, hospitalization back in December 2020 for right middle lobe pneumonia, recovered History of Any Multi-Drug Resistant Organisms: None Reported Past Surgical History: Tubal Ligation Past Anesthesia/Blood Transfusion Reactions: No Reported Reaction Past Psychological History: No Psychological Hx Reported Smoking Status: Former smoker Past Alcohol Use History: Occasional Past Drug Use History: Marijuana - Past Family History Mother Family Medical History: No Reported History Sister(s) Family Medical History: CVA/TIA General Exam Limitations: no limitations Course Vital Signs 05/30/22 05/30/22 08:09 08:25 Temperature 98.0 F Pulse Rate 91 81 Respiratory 18 18 Rate Blood Pressure 140/107 146/99 O2 Sat by Pulse 98 98 Oximetry Medical Decision Making - Lab Data Result diagrams: 05/30/22 08:34 05/30/22 08:34 Lab Results 05/30/22 05/30/22 Range/Units 08:34 08:34 WBC 5.2 (3.8-10.6) k/uL RBC 4.69 (3.80-5.40) m/uL Hgb 14.0 (11.4-16.0) gm/dL Hct 44.2 (34.0-46.0) % MCV 94.2 (80.0-100.0) fL MCH 29.8 (25.0-35.0) pg MCHC 31.6 (31.0-37.0) g/dL RDW 15.5 (11.5-15.5) % Plt Count 352 (150-450) k/uL MPV 7.5 Neutrophils % 55 % Lymphocytes % 34 % Monocytes % 5 % Eosinophils % 3 % Basophils % 1 % Neutrophils # 2.9 (1.3-7.7) k/uL Lymphocytes # 1.8 (1.0-4.8) k/uL Monocytes # 0.3 (0-1.0) k/uL Eosinophils # 0.1 (0-0.7) k/uL Basophils # 0.0 (0-0.2) k/uL Sodium 140 (137-145) mmol/L Potassium 3.9 (3.5-5.1) mmol/L Chloride 106 (98-107) mmol/L Carbon Dioxide 26 (22-30) mmol/L Anion Gap 8 mmol/L BUN 9 (7-17) mg/dL Creatinine 0.72 (0.52-1.04) mg/dL Est GFR (CKD-EPI)AfAm >90 (>60 ml/min/1.73 sqM) Est GFR (CKD-EPI)NonAf >90 (>60 ml/min/1.73 sqM) Glucose 91 (74-99) mg/dL Calcium 9.5 (8.4-10.2) mg/dL Disposition Clinical Impression: Angioedema Disposition: HOME SELF-CARE Condition: Good Instructions (If sedation given, give patient instructions): Angioedema (ED) Additional Instructions: Discontinue lisinopril. Seek immediate medical attention with worsening symptoms especially involvement of tongue, throat and lips. Is patient prescribed a controlled substance at d/c from ED?: No Referrals: Carolina Willams DO [Primary Care Provider] - 1-2 days Time of Disposition: 11:04
[2022-05-30 08:52] LABS: Basophils % (A) 1 %; Eosinophils # (A) 0.1 k/uL (0-0.7); Eosinophils % (A) 3 %; HCT 44.2 % (34.0-46.0); Lymphocytes # (A) 1.8 k/uL (1.0-4.8); Lymphocytes % (A) 34 %; MCH 29.8 pg (25.0-35.0); MCHC 31.6 g/dL (31.0-37.0); MCV 94.2 fL (80.0-100.0); Mean Platelet Volume 7.5; Monocytes # (A) 0.3 k/uL (0-1.0); Monocytes % (A) 5 %; Neutrophils # (A) 2.9 k/uL (1.3-7.7); Neutrophils % (A) 55 %; Platelet Count 352 k/uL (150-450); RBC 4.69 m/uL (3.80-5.40); RDW 15.5 % (11.5-15.5); WBC 5.2 k/uL (3.8-10.6)
[2022-05-30 09:03] LABS: African American GFR (CKD) >90 (>60 ml/min/1.73 sqM); Anion Gap 8 mmol/L; Blood Urea Nitrogen 9 mg/dL (7-17); Calcium 9.5 mg/dL (8.4-10.2); Carbon Dioxide 26 mmol/L (22-30); Chloride 106 mmol/L (98-107); Glucose 91 mg/dL (74-99); Non-African American GFR(CKD) >90 (>60 ml/min/1.73 sqM); Potassium 3.9 mmol/L (3.5-5.1); Sodium 140 mmol/L (137-145)
--- NOTE | 2022-05-30 10:23 | CT ---
EXAMINATION TYPE: CT brain wo con DATE OF EXAM: 05/30/2022 COMPARISON: 02/09/2022 HISTORY: Intermittent vision changes and facial swelling. CT DLP: 1123.[address] of the brain was performed. The ventricles, basal cisterns and sulci overlying the cerebral convexities demonstrate mild enlargem ent. There is no evidence for intracranial hemorrhage or sulcal effacement. There is decreased attenuation about the periventricular white matter and deep white matter of both c erebral hemispheres, compatible with chronic small vessel ischemia. Differential diagnosis does inclu de demyelination. No mass effects are seen.No midline shift. Osseous calvarium is intact. If symptoms persist consider MRI. IMPRESSION: 1. Age related atrophic and chronic small vessel ischemic change without acute intracranial process s een at this time.
[2022-05-30 11:11] VITALS: BP 144/98; PULSE 82
== END 2022-05-30 11:11 | disposition home or self-care (01) ==
LOC: EC 08:04
DX: T78.3XXA Angioneurotic edema, initial encounter (principal); I10 Essential (primary) hypertension; Z87.891 Personal history of nicotine dependence; F12.90 Cannabis use, unspecified, uncomplicated; Z79.899 Other long term (current) drug therapy
CPT/HCPCS: 36415; 70450; 80048; 85025; 99284

== ENCOUNTER → 2022-05-30 | Outpatient (CLI) | payer OTHER ==
--- NOTE | 2022-05-30 11:47 | CT ---
EXAMINATION TYPE: CT chest w con DATE OF EXAM: 05/30/2022 COMPARISON: 05/23/2021 HISTORY: Enlarged lymph nodes, left sided neck area. CT DLP: 245.3 mGycm Automated exposure control for dose reduction was used. TECHNIQUE: CT scan of the chest is performed with IV Contrast, patient injected with 100ml mL of Isovue 300. MN P Images are created on CT scanner and reviewed. 3D reconstructed images are created on an [employer] workstation and reviewed. FINDINGS: Heart normal size. Trace anterior pericardial fluid remains measuring 4 mm thick, decreased from 7 mm . Some proximal LAD coronary artery calcifications are present. Aorta normal caliber weight mild atherosclerotic arch calcifications and bovine configuration to the aortic arch. Previous mediastinal and right hilar lymph nodes are stable in size. Precarinal lymph node currently measures 9 mm versus 9 mm, previously. Right hilar lymph node now only 1.9 x 1.0 cm versus 1.9 x 1.0 cm, previously. There is moderate overlying centrilobular emphysema, moderate to advanced in the upper lungs. Mild de pendent atelectasis in the lungs. The previous patchy changes in the lower lungs and diffuse septal l nohelia have improved compared to prior exam. Visualized upper abdomen shows no gross abnormality. Calci fication in the right breast. No pathologic axillary lymphadenopathy Bones: Moderate degenerative disc disease midthoracic spine. No osseous destructive process. IMPRESSION: 1. COPD with moderate emphysema, more moderately advanced in the upper lungs. 2. No focal infiltrate. The previous diffuse septal lines and patchy bibasilar opacities seen on mult iple prior exams have demonstrated near-complete resolution. 3. Stable nonspecific mediastinal and right hilar lymphadenopathy unchanged from prior exam.
== END | disposition home or self-care (01) ==
LOC: RADCTMAIN 12:14
PROVIDERS: ATTEND Internal Medicine Critical Care Medicine
DX: J43.2 Centrilobular emphysema (principal); R59.0 Localized enlarged lymph nodes
CPT/HCPCS: 71260; Q9967

== ENCOUNTER 2023-04-05 14:55 | Emergency (ER) | payer OTHER ==
[2023-04-05 15:17] VITALS: RESP 16; TEMP 98.4
--- NOTE | 2023-04-05 15:37 | ED ---
Recheck HPI - General Source: patient, RN notes reviewed Mode of arrival: ambulatory Limitations: no limitations <Korina Hernandez - Last Filed: 04/05/23 15:36> <Cy Omalley - Last Filed: 04/05/23 19:38> - General Chief Complaint: Recheck/Abnormal Lab/Rx Stated Complaint: HIGH BP Time Seen by Provider: 04/05/23 15:36 - History of Present Illness Initial Comments: Patient is a 62-year-old female presented ER with a chief complaint of hypotension. Patient was sent here by PCP for evaluation. Patient is on anti hypertensive medication. Patient does report she said a headache for the past 3-4 days. Patient denies any chest pain, shortness of breath, dizziness, lightheadedness. (Korina Hernandez) 62-year-old female presenting to the ED with a chief complaint of hypotension. Patient is on lisinopril. Patient states that she was just getting a regular checkup at her primary care physician's office today when they noted her blood pressure was in the 70 systolic and she was advised to present to the ED for further evaluation. Denies chest pain or shortness of breath. Patient also notes that for the past week she has had headaches which are not characteristic of her. States that she has a possible history of seizures as well over the past 3 days. None today. She has told her PCP about this however she has not provided her any neurology follow-up. No other complaints at this time. (Cy Omalley) - Related Data Home Medications Medication Instructions Recorded Confirmed Albuterol Sulfate [Ventolin HFA] 2 puff INHALATION RT-Q4H 05/30/22 05/30/22 Levothyroxine Sodium [Synthroid] 75 mcg PO DAILY 05/30/22 05/30/22 Vitamin D3 1250mcg (40207 Iu) 1,250 mcg PO MO 05/30/22 05/30/22 lisinopriL [Zestril] 20 mg PO DAILY 05/30/22 05/30/22 Allergies Allergy/AdvReac Type Severity Reaction Status Date / Time No Known Allergies Allergy Verified 05/30/22 09:41 Review of Systems ROS Other: All systems not noted in ROS Statement are negative. <Korina Hernandez - Last Filed: 04/05/23 15:36> ROS Other: All systems not noted in ROS Statement are negative. <Cy Omalley - Last Filed: 04/05/23 19:38> ROS Statement: Those systems with pertinent positive or pertinent negative responses have been documented in the HPI. Past Medical History Past Medical History: Heart Failure, COPD, Hypertension Additional Past Medical History / Comment(s): Legionnaires Disease, hospitalization back in December 2020 for right middle lobe pneumonia, recovered History of Any Multi-Drug Resistant Organisms: None Reported Past Surgical History: No Surgical Hx Reported, Tubal Ligation Past Anesthesia/Blood Transfusion Reactions: No Reported Reaction Past Psychological History: No Psychological Hx Reported Smoking Status: Former smoker Past Alcohol Use History: Occasional Past Drug Use History: Marijuana - Past Family History Mother Family Medical History: No Reported History Sister(s) Family Medical History: CVA/TIA <Korina Hernandez - Last Filed: 04/05/23 15:36> General Exam Limitations: no limitations <Korina Hernandez - Last Filed: 04/05/23 15:36> General appearance: alert, in no apparent distress Eye exam: Present: normal appearance Neck exam: Present: normal inspection Respiratory exam: Present: normal lung sounds bilaterally Cardiovascular Exam: Present: regular rate, normal rhythm GI/Abdominal exam: Present: soft Neurological exam: Present: alert, oriented X3 Skin exam: Present: warm, dry <Cy Omalley - Last Filed: 04/05/23 19:38> - General Exam Comments Initial Comments: Visual Physical Exam Vital signs reviewed General: Well-appearing, nontoxic, no acute distress. Head: Normocephalic, atraumatic Eyes: PERRLA, EOMI ENT: Airway patent Chest: Nonlabored breathing Skin: No visual rash, normal skin tone Neuro: Alert and oriented 3 Musculoskeletal: No gross abnormalities (Korina Hernandez) Course Vital Signs 04/05/23 04/05/23 15:13 17:55 Temperature 98.4 F Pulse Rate 65 61 Respiratory 16 16 Rate Blood Pressure 94/60 107/70 O2 Sat by Pulse 96 99 Oximetry Medical Decision Making <Korina Hernandez - Last Filed: 04/05/23 15:36> - Lab Data Result diagrams: 04/05/23 15:57 04/05/23 15:57 <Cy Omalley - Last Filed: 04/05/23 19:38> - Medical Decision Making I performed the quick note portion of the exam. Electronically signed by Korina Hernandez PA-C (Korina Hernandez) Was pt. sent in by a medical professional or institution (, [employer], [facility] [facility], urgent care, hospital, or detention...) When possible be specific @ -No Did you speak to anyone other than the patient for history (EMS, parent, family, police, friend...)? What history was obtained from this source @ -No Did you review nursing and triage notes (agree or disagree)? Why? @ -I reviewed and agree with nursing and triage notes Were old charts reviewed (outside hosp., previous admission, EMS record, old EKG, old radiological studies, urgent care reports/EKG's, detention records)? Report findings @ -No old charts were reviewed Differential Diagnosis (chest pain, altered mental status, abdominal pain women, abdominal pain men, vaginal bleeding, weakness, fever, dyspnea, syncope, headache, dizziness, GI bleed, back pain, seizure, CVA, palpatations, mental health, musculoskeletal)? @ -Differential Chest Pain: Stable Angina, Unstable Angina, STEMI, NSTEMI Aortic Dissection, Pneumothorax, Musculoskeletal, Esophageal Spasm GERD, Cholecystitis, Pancreatitis, Zoster, this is not meant to be an all-inclusive list. EKG interpreted by me (3pts min.). @ -As above X-rays interpreted by me (1pt min.). @ -None done CT interpreted by me (1pt min.). @ -CT of the brain interpreted by me showing no evidence of acute finding. U/S interpreted by me (1pt. min.). @ -None done What testing was considered but not performed or refused? (CT, X-rays, U/S, labs)? Why? @ -None What meds were considered but not given or refused? Why? @ -None Did you discuss the management of the patient with other professionals (professionals i.e. [employer] [facility], [employer], lab, RT, psych nurse, social human services assistants, production line, teacher, foreign service officer, family caseworker)? Give summary @ -No Was smoking cessation discussed for >3mins.? @ -No Was critical care preformed (if so, how long)? @ -No Were there social determinants of health that impacted care today? How? (Homelessness, low income, unemployed, alcoholism, drug addiction, transportation, low edu. Level, literacy, decrease access to med. care, correction, r ehab)? @ -No Was there de-escalation of care discussed even if they declined (Discuss DNR or withdrawal of care, Hospice)? DNR status @ -No What co-morbidities impacted this encounter? (DM, HTN, Smoking, COPD, CAD, Cancer, CVA, ARF, Chemo, Hep., AIDS, mental health diagnosis, sleep apnea, morbid obesity)? @ -Hypertension Was patient admitted / discharged? Hospital course, mention meds given and route, prescriptions, significant lab abnormalities, going to OR and other pertinent info. @ -Discharge 62-year-old female sent by her PCPs office due to concerns of hypotension at her regular checkup today. Was noted to be at the 70 systolic. Here in the ED blood pressure 107/70. Patient also did note questionable history of seizures occurring in the past week and also has had some headaches. CT scan at this time revealed no acute findings. Laboratory studies at this time unremarkable. Discharged home in stable condition. Patient has not had any occurrences of seizure-like activity while in the ED. advised to discontinue lisinopril until follow-up with her PCP or chairman emeritus. Provided referral to see neurology. Discussed driving precautions with patient and advised her not to drive until follow-up with neurology secondary to history of possible seizures. Discussed return precautions with patient who verbalized agreement. Undiagnosed new problem with uncertain prognosis? @ -No Drug Therapy requiring intensive monitoring for toxicity (Heparin, Nitro, Insulin, Cardizem)? @ -No Were any procedures done? @ -No Diagnosis/symptom? @ -Hypotension Acute, or Chronic, or Acute on Chronic? @ -Acute Uncomplicated (without systemic symptoms) or Complicated (systemic symptoms)? @ -Uncomplicated Side effects of treatment? @ -No Exacerbation, Progression, or Severe Exacerbation? @ -No Poses a threat to life or bodily function? How? (Chest pain, USA, CT, pneumonia, PE, COPD, DKA, ARF, appy, cholecystitis, CVA, Diverticulitis, Homicidal, Suicidal, threat to staff... and all critical care pts) @ -No (Cy Omalley) - Lab Data Lab Results 04/05/23 04/05/23 Range/Units 15:57 15:57 WBC 6.7 (3.8-10.6) k/uL RBC 4.46 (3.80-5.40) m/uL Hgb 14.1 (11.4-16.0) gm/dL Hct 43.8 (34.0-46.0) % MCV 98.2 (80.0-100.0) fL MCH 31.7 (25.0-35.0) pg MCHC 32.3 (31.0-37.0) g/dL RDW 14.6 (11.5-15.5) % Plt Count 250 (150-450) k/uL MPV 7.3 Sodium 136 L (137-145) mmol/L Potassium 3.7 (3.5-5.1) mmol/L Chloride 106 (98-107) mmol/L Carbon Dioxide 26 (22-30) mmol/L Anion Gap 4 mmol/L BUN 7 (7-17) mg/dL Creatinine 0.89 (0.52-1.04) mg/dL Est GFR (CKD-EPI)AfAm 82 (>60 ml/min/1.73 sqM) Est GFR (CKD-EPI)NonAf 71 (>60 ml/min/1.73 sqM) Glucose 112 H (74-99) mg/dL Calcium 9.5 (8.4-10.2) mg/dL Total Bilirubin 0.7 (0.2-1.3) mg/dL AST 17 (14-36) U/L ALT 11 (4-34) U/L Alkaline Phosphatase 73 (38-126) U/L Total Protein 7.1 (6.3-8.2) g/dL Albumin 4.3 (3.5-5.0) g/dL - EKG Data EKG Comments: EKG shows a sinus rhythm at [address] and T wave changes. TX 171, QRS 80, QT/QTc 418/417. (Cy Omalley) Disposition <Korina Hernandez - Last Filed: 04/05/23 15:36> Is patient prescribed a controlled substance at d/c from ED?: No <Cy Omalley - Last Filed: 04/05/23 19:38> Clinical Impression: Hypotension Disposition: HOME SELF-CARE Condition: Good Additional Instructions: Please return to the Emergency Department if symptoms worsen or any other concerns. Discontinue your antihypertensive until follow-up with your PCP or cardiology. Please follow-up with neurology. Referrals: Carolina Willams DO [Primary Care Provider] - 1-2 days Jake Montalvo MD [STAFF PHYSICIAN] - 1-2 days
[2023-04-05 16:14] LABS: HCT 43.8 % (34.0-46.0); HGB 14.1 gm/dL (11.4-16.0); MCH 31.7 pg (25.0-35.0); MCHC 32.3 g/dL (31.0-37.0); MCV 98.2 fL (80.0-100.0); Mean Platelet Volume 7.3; Platelet Count 250 k/uL (150-450); RBC 4.46 m/uL (3.80-5.40); RDW 14.6 % (11.5-15.5); WBC 6.7 k/uL (3.8-10.6)
[2023-04-05 16:25] LABS: ALT 11 U/L (4-34); AST 17 U/L (14-36); African American GFR (CKD) 82 (>60 ml/min/1.73 sqM); Albumin 4.3 g/dL (3.5-5.0); Alkaline Phosphatase 73 U/L (38-126); Anion Gap 4 mmol/L; Blood Urea Nitrogen 7 mg/dL (7-17); Calcium 9.5 mg/dL (8.4-10.2); Carbon Dioxide 26 mmol/L (22-30); Chloride 106 mmol/L (98-107); Glucose 112 mg/dL (74-99); Non-African American GFR(CKD) 71 (>60 ml/min/1.73 sqM); Potassium 3.7 mmol/L (3.5-5.1); Sodium 136 mmol/L (137-145); Total Bilirubin 0.7 mg/dL (0.2-1.3); Total Protein 7.1 g/dL (6.3-8.2)
[2023-04-05] MEDS ORDERED: SODIUM CHLORIDE 0.9% 1,000 ML IV STA (17:43)
--- NOTE | 2023-04-05 19:00 | CT ---
EXAMINATION TYPE: CT brain wo con CT DLP: 1167.4 mGycm, Automated exposure control for dose reduction was used. DATE OF EXAM: 04/05/2023 6:29 PM COMPARISON: 05/22/2022. CLINICAL INDICATION:Female, 62 years old with history of hx seizure, ROE, Seizure TECHNIQUE: Brain: Axial CT images of the brain were obtained with coronal and sagittal reformats created and rev iewed. Contrast used: None. Oral contrast used: None. FINDINGS: Brain: Extra-axial spaces: No abnormal extra-axial fluid collections. Ventricular system: Within normal limits Cerebral parenchyma: No acute intraparenchymal hemorrhage or mass effect. The sanchez-white junction is well differentiated. Cerebellum: Unremarkable. Mass effect: No evidence of midline shift. Intracranial vasculature: Atherosclerotic calcifications of the intracranial vessels. Soft tissues: Normal. Calvarium/osseous structures: No depressed skull fracture. Paranasal sinuses and mastoid air cells: Mild scattered paranasal sinus disease. Visualized orbits: Orbital contents are intact. IMPRESSION: No acute intracranial process.
[2023-04-05 20:03] VITALS: BP 111/70; PULSE 96
== END 2023-04-05 19:59 | disposition home or self-care (01) ==
LOC: EC 14:55
DX: I95.9 Hypotension, unspecified (principal); I25.2 Old myocardial infarction; I11.0 Hypertensive heart disease with heart failure; I50.9 Heart failure, unspecified; J44.9 Chronic obstructive pulmonary disease, unspecified; Z87.891 Personal history of nicotine dependence; F12.90 Cannabis use, unspecified, uncomplicated; Z79.899 Other long term (current) drug therapy
CPT/HCPCS: 36415; 70450; 80053; 85027; 93005; 99284

== ENCOUNTER → 2023-05-14 | Outpatient (CLI) | payer OTHER ==
--- NOTE | 2023-05-14 15:41 | CT ---
Exam: CT Chest with contrast. Date: 05/14/2023. Comparison: 05/30/2022. History: Enlarged lymph nodes with history of COPD. Technique: CT examination of the chest was performed following the intravenous administration of 100 mL of Isovue-300. Coronal and sagittal reformats were performed. CT dose lowering techniques were us ed, to include: automated exposure control, adjustment for patient size, and/or use of iterative néstor nstruction. FINDINGS: Mediastinum and Breanna: Unchanged prominent right hilar lymph node and pretracheal lymph node when comp ared to the previous examination. There is no new adenopathy identified. Pleural and Pericardial spaces: There are no pleural or pericardial effusions. Upper Abdomen: The visualized upper abdomen is unremarkable. Cardiovascular: There is mild to moderate vascular calcification throughout the thoracic aorta withou t evidence of aneurysmal dilation or dissection. Pulmonary Artery: There are no central pulmonary arterial abnormalities. The examination was not per formed to evaluate for pulmonary embolism. Lung Parenchyma and Airways: Moderate diffuse centrilobular emphysema. Lungs otherwise appear clear. Bones: No fracture or aggressive osseous lesion. IMPRESSION: 1. Unchanged prominent mediastinal lymph nodes and compared to the previous examination. 2. Emphysema. 3. No acute findings. 4. Incidental chronic changes noted above.
== END | disposition home or self-care (01) ==
LOC: RADCTMAIN 14:56
PROVIDERS: ATTEND Internal Medicine Critical Care Medicine
DX: J43.2 Centrilobular emphysema (principal); J44.9 Chronic obstructive pulmonary disease, unspecified; R59.0 Localized enlarged lymph nodes
CPT/HCPCS: 71260; Q9967

== ENCOUNTER → 2024-01-01 | Outpatient (CLI) | payer OTHER ==
[2024-01-01 16:06] VITALS: BP 95/60; PULSE 78; RESP 16; TEMP 98.1
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
== END ==
LOC: 3 N SLEEP 14:50
PROVIDERS: ATTEND Internal Medicine Critical Care Medicine
CPT/HCPCS: 99211

== ENCOUNTER → 2024-05-14 | Outpatient (CLI) | payer OTHER ==
--- NOTE | 2024-05-14 11:52 | CTL ---
EXAMINATION TYPE: CT Low Dose Lung DATE OF EXAM: 05/14/2024 11:40 AM COMPARISON: 05/14/2023 CLINICAL INDICATION: Female, 63 years old with history of Z87.891 personal hx tobaco use; HISTORY OF SMOKER, history of tobacco use. TECHNIQUE: Multiple axial non-contrast scans were obtained from approximately the lung apices through the upper abdomen. Coronal and sagittal reformatted images were obtained. Low dose technique was uti lized. MIP were created on a separate workstation and submitted for review. CT DLP: 68 mGycm, Automated exposure control for dose reduction was used. CT Contrast: Contrast used: None Oral contrast used: None FINDINGS: Lack of intravenous contrast and low dose technique limits the evaluation of the vascular and soft ti ssue structures. LUNGS: No evidence of pulmonary fibrosis. No evidence of focal consolidation, pneumothorax or pleural effusion. Centrilobular emphysema changes. Nodules: RUL: None. RML: None. RLL: 3 mm series 11 image 29. TRACEY: None. LLL: None. AIRWAY: Patent and unremarkable. HEART: Size within normal limits. Mild coronary artery calcifications present. MEDIASTINUM: No gross evidence of adenopathy. VASCULATURE: Atherosclerotic calcifications are present throughout the aorta and its branches. MUSCULOSKELETAL: Mild disc degeneration changes are present throughout the thoracolumbar spine. SOFT TISSUES/LYMPH NODES: Unremarkable. LOWER NECK: No significant findings. UPPER ABDOMEN: No significant findings. IMPRESSION: 1. No clinically significant pulmonary nodules. 2. Moderate emphysema. CT LUNG RAD AND CT CHEST RECOMMENDATION: Lung-Rad 2 Benign Appearance or Behavior: Continue annual sc reening with LDCT in 12 months. S Modifier (other clinically significant findings): None Recommend smoking cessation (if current smoker), or continuation of smoking cessation (if prior smoke r). Annual screening for lung cancer with low-dose computed tomography is recommended in adults ages 55 to 77 years who have a 30 pack-year smoking history and currently smoke or have quit within the pa st 15 years. Screening should be discontinued once a person has not smoked for 15 years or develops a health problem that substantially limits life expectancy or the ability or willingness to have curat johan lung surgery. Lung rads 2021 [email or web address] [email or web address], , 05/14/2024 11:50 AM
== END | disposition home or self-care (01) ==
LOC: RADCTMAIN 10:30
PROVIDERS: ATTEND Internal Medicine Critical Care Medicine
DX: Z12.2 Encounter for screening for malignant neoplasm of respiratory organs (principal); J43.2 Centrilobular emphysema; Z87.891 Personal history of nicotine dependence
CPT/HCPCS: 71271